=== PATIENT | female | born 1990 | race Caucasian/White ===

== ENCOUNTER 2016-09-18 23:22 | Emergency (ER) | payer BC ==
[2016-09-18 23:38] VITALS: RESP 18
[2016-09-19] MEDS ORDERED: PROPARACAINE 0.5% OPHTH DROPS 15 ML BTL RIGHT EYE SCH (00:15)
--- NOTE | 2016-09-19 00:50 | ED ---
General Adult HPI - General Chief complaint: Eye Problems Stated complaint: Eye Problems Time Seen by Provider: 09/18/16 23:51 Source: patient, RN notes reviewed, old records reviewed Mode of arrival: ambulatory Limitations: no limitations - History of Present Illness Initial comments: This is a 26-year-old female ER for reevaluation of eye pain. Patient is rapidly after getting oral or gas in her eye earlier today. Patient state that it was low-pressure oil injury, noticed it was a splash injury and she did flush her eye at the time. No significant drainage, no redness no change of vision. Patient was not wearing contacts, occasionally does were glasses. Denies any change in vision. No significant pain. Just discomfort - Related Data Home Medications Medication Instructions Recorded Confirmed Phentermine HCl [Adipex-P] 37.5 mg PO QAM 09/18/16 09/18/16 Previous Rx's Medication Instructions Recorded Ondansetron Odt [Zofran ODT] 4 mg PO Q8HR PRN #10 tab 12/12/15 Allergies Allergy/AdvReac Type Severity Reaction Status Date / Time amphetamine aspartate Allergy Unknown Verified 09/18/16 23:37 [From Adderall] amphetamine sulfate Allergy Unknown Verified 09/18/16 23:37 [From Adderall] dextroamphetamine saccharate Allergy Unknown Verified 09/18/16 23:37 [From Adderall] dextroamphetamine sulfate Allergy Unknown Verified 09/18/16 23:37 [From Adderall] Review of Systems ROS Statement: Those systems with pertinent positive or pertinent negative responses have been documented in the HPI. ROS Other: All systems not noted in ROS Statement are negative. Past Medical History Additional Past Medical History / Comment(s): tachycardia; Ovarian Cysts History of Any Multi-Drug Resistant Organisms: None Reported Additional Past Surgical History / Comment(s): ovarian cyst Past Psychological History: No Psychological Hx Reported Smoking Status: Never smoker Past Alcohol Use History: None Reported Past Drug Use History: None Reported General Exam - General Exam Comments Initial Comments: Fluorescein exam right eye is negative, pH test is negative, neutral, eyes flushed with Trent lens Limitations: no limitations General appearance: alert, in no apparent distress Head exam: Present: atraumatic, normocephalic, normal inspection Eye exam: Present: normal appearance, PERRL, EOMI. Absent: scleral icterus, conjunctival injection, periorbital swelling ENT exam: Present: normal exam, mucous membranes moist Neck exam: Present: normal inspection. Absent: tenderness, meningismus, lymphadenopathy Respiratory exam: Present: normal lung sounds bilaterally. Absent: respiratory distress, wheezes, rales, rhonchi, stridor Cardiovascular Exam: Present: regular rate, normal rhythm, normal heart sounds. Absent: systolic murmur, diastolic murmur, rubs, gallop, clicks GI/Abdominal exam: Present: soft, normal bowel sounds. Absent: distended, tenderness, guarding, rebound, rigid Extremities exam: Present: normal inspection, full ROM, normal capillary refill. Absent: tenderness, pedal edema, joint swelling, calf tenderness Back exam: Present: normal inspection Neurological exam: Present: alert, oriented X3, CN II-XII intact Psychiatric exam: Present: normal affect, normal mood Skin exam: Present: warm, dry, intact, normal color. Absent: rash Course Vital Signs 09/18/16 23:35 Temperature 98.0 F Pulse Rate 100 Respiratory 18 Rate Blood Pressure 171/84 O2 Sat by Pulse 98 Oximetry - Reevaluation(s) Reevaluation #1: 09/19/16 00:48 Right eye is inverted in flushed with proparacaine, good sensation relief, good pain relief, eyes flushed with 1 L fluid Trent lens Medical Decision Making - Medical Decision Making 22 for female chemical injury right I, neutral pH no vision changes a patient's symptoms are controlled at this time can be discharged home Disposition Clinical Impression: Chemical exposure of eye Disposition: HOME SELF-CARE Condition: Good Instructions: Chemical Eye Laura (ED) Referrals: Mp Tello MD [STAFF PHYSICIAN] - 1-2 days
[2016-09-19] MEDS ORDERED: TOBRAMYCIN 0.3% OPHTH DROPS 5 ML BTL RIGHT EYE STA (01:05)
[2016-09-19 01:17] VITALS: BP 169/85; PULSE 84; TEMP 97.7
== END 2016-09-19 01:17 | disposition home or self-care (01) ==
LOC: EC 23:22
DX: Z77.098 Contact with and (suspected) exposure to other hazardous, chiefly nonmedicinal, chemicals (principal); H57.11 Ocular pain, right eye; Z79.899 Other long term (current) drug therapy; Z88.8 Allergy status to other drugs, medicaments and biological substances
CPT/HCPCS: 99283

== ENCOUNTER 2019-07-02 16:25 | Emergency (ER) | payer BC, MEDICAID ==
[2019-07-02 16:40] VITALS: BP 144/67; PULSE 93; RESP 18; TEMP 98.4
[2019-07-02] MEDS ORDERED: KETOROLAC 30 MG/ML 1 ML VIAL IM STA (17:00)
--- NOTE | 2019-07-02 17:28 | XR ---
EXAMINATION TYPE: XR ankle complete LT DATE OF EXAM: 07/02/2019 COMPARISON: NONE HISTORY: Pain TECHNIQUE: 3 views FINDINGS: There is soft tissue swelling over the lateral malleolus. I see no fracture nor dislocation . Ankle mortise is anatomic. There is minimal calcification at the distal fibula that could relate to ligamentous tear this could be an old injury. IMPRESSION: Soft tissue swelling. No definite acute fracture seen.
--- NOTE | 2019-07-02 17:46 | ED ---
General Adult HPI - General Chief complaint: Extremity Injury, Lower Stated complaint: Ankle injury Time Seen by Provider: 07/02/19 16:45 Source: patient Mode of arrival: ambulatory Limitations: no limitations - History of Present Illness Initial comments: Patient is a 28-year-old female presenting to the emergency department with a chief complaint of left ankle pain. Patient reports she is stepped into a hole twice about 2 hours prior to ED arrival and rolled her left ankle. Patient reports swelling along the lateral malleolus. Patient denies any pain on the mid foot or along the fifth metatarsal. Patient reports pain with inversion, plantar and dorsiflexion. Patient is a limited range of motion due to pain. Patient denies taking any medication to alleviate the symptoms. Patient reports pain with ambulation but is alleviated at rest. Patient denies numbness or tingling - Related Data Home Medications Medication Instructions Recorded Confirmed Phentermine HCl [Adipex-P] 37.5 mg PO QAM 09/18/16 09/18/16 Previous Rx's Medication Instructions Recorded Ondansetron Odt [Zofran ODT] 4 mg PO Q8HR PRN #10 tab 12/12/15 Allergies Allergy/AdvReac Type Severity Reaction Status Date / Time amphetamine aspartate Allergy Unknown Verified 07/02/19 16:38 [From Adderall] amphetamine sulfate Allergy Unknown Verified 07/02/19 16:38 [From Adderall] dextroamphetamine saccharate Allergy Unknown Verified 07/02/19 16:38 [From Adderall] dextroamphetamine sulfate Allergy Unknown Verified 07/02/19 16:38 [From Adderall] Review of Systems ROS Statement: Those systems with pertinent positive or pertinent negative responses have been documented in the HPI. ROS Other: All systems not noted in ROS Statement are negative. Past Medical History Additional Past Medical History / Comment(s): tachycardia; Ovarian Cysts History of Any Multi-Drug Resistant Organisms: None Reported Additional Past Surgical History / Comment(s): ovarian cyst Past Psychological History: No Psychological Hx Reported Smoking Status: Never smoker Past Alcohol Use History: None Reported Past Drug Use History: None Reported General Exam - General Exam Comments Initial Comments: General: Well-developed well-nourished distress HEENT: Normocephalic/atraumatic, PERLL, pharynx erythema, swallowing well, EAC no erythema, no exudates, TM clear, no cervical lymph nodes Neck: Supple, nontender, trachea midline Chest/Lungs: Normal respirations, no signs of respiratory distress clear to auscultation bilaterally no wheezes, rales, rhonchi Cardiac: Regular rate and rhythm, normal S1-S2, no murmurs rubs or gallops Abdomen/GI: Soft nontender, bowel sounds equal or quadrant x4, no guarding, no rebound no CVA tenderness Musculoskeletal: Tenderness along the left lateral malleolus, no ecchymosis or skin discoloration, swelling along the lateral malleolus, no lacerations or abrasions and region, no midfoot or fifth metatarsal tenderness, limited range of motion due to pain, +2 dorsalis pedis and posterior tibialis bilaterally Skin: Warmth, no rashes or lesions, no cyanosis or diaphoresis Neurologic: AAO x 3, CN 2-12 intact, Psychiatric: Mood and affect normal, judgment normal Limitations: no limitations Course Vital Signs 07/02/19 16:38 Temperature 98.4 F Pulse Rate 93 Respiratory 18 Rate Blood Pressure 144/67 O2 Sat by Pulse 95 Oximetry Procedures - Orthopedic Splinting/Casting Injury #1 Side: left Lower Extremity Injury Location: ankle Lower Extremity Immobilizer: stirrup splint, Augie wrap Medical Decision Making - Medical Decision Making Patient is a 28-year-old female presenting to the emergency department with a chief complaint of left ankle pain. Patient stepped into a hole twice and rolled her left ankle. Patient is neurovascularly intact. Patient does have tenderness and swelling along the left lateral malleolus. X-ray is negative for acute fracture or dislocations. I suspect the patient has suffered an ankle sprain. Augie wrap applied. Patient advised to alternate between Tylenol and ibuprofen for pain control. Patient advised to apply ice compress to minimize symptoms. Patient advised to follow with orthopedics if symptoms not improved. Strict return parameters were thoroughly discussed with patient was understanding and agreeable. Case discussed physician. Disposition Clinical Impression: Left ankle sprain Disposition: HOME SELF-CARE Condition: Stable Instructions (If sedation given, give patient instructions): Ankle Sprain (ED) Additional Instructions: Please follow up with orthopedics if symptoms not improve after week. Alternate between Tylenol and ibuprofen for pain control. Apply ice compress to minimize symptoms. Is patient prescribed a controlled substance at d/c from ED?: No Referrals: None,Stated [Primary Care Provider] - 1-2 days Manav Remy MD [STAFF PHYSICIAN] - 1-2 days Time of Disposition: 17:46
[2019-07-02] MEDS ORDERED: ACET/COD 300 MG/30 MG STARTER PACK 6 TAB BTL PO STA (17:55)
== END 2019-07-02 17:50 | disposition home or self-care (01) ==
LOC: EC 16:25
DX: S93.402A Sprain of unspecified ligament of left ankle, initial encounter (principal); Z88.8 Allergy status to other drugs, medicaments and biological substances; W17.2XXA Fall into hole, initial encounter; X50.1XXA Overexertion from prolonged static or awkward postures, initial encounter
CPT/HCPCS: 73610; 99283; 29515; 96372; J1885

== ENCOUNTER 2020-09-13 10:54 | Emergency (ER) | payer BC, MEDICAID ==
--- NOTE | 2020-09-13 11:19 | ED ---
Back Pain HPI - General Chief Complaint: Back Pain/Injury Stated Complaint: back pain Time Seen by Provider: 09/13/20 11:03 Source: patient, RN notes reviewed Limitations: no limitations - History of Present Illness Initial Comments: This is a 30-year-old female presents emergency Department chief complaint low back pain. Patient states she fell couple days ago that increase her low back pain. She states that she's had issues with her back She Had an Ankle Injury A Few Years Ago. Patient States She Was Favoring Her Opposite Side and States That It Must of Her Back. She's Got a Chiropractor Feet States It Helps but Never Completely Relieves Her Symptoms. Patient States She's Had No Imaging of Her Back. Denies Any Bowel, Bladder Incontinence or Retention. No Saddle Anesthesias No Lower Shunted Paresthesias. She Does Have Some Pain Rates down Her Right Leg into Her Thigh. She Has No Dysuria Mild Urinary Frequency. Denies Any Chance . - Related Data Home Medications Medication Instructions Recorded Confirmed Escitalopram [Lexapro] 20 mg PO HS 09/13/20 09/13/20 Previous Rx's Medication Instructions Recorded Cyclobenzaprine [Flexeril] 10 mg PO TID PRN #15 tab 09/13/20 Ibuprofen [Motrin] 600 mg PO Q8HR PRN #20 tab 09/13/20 predniSONE 50 mg PO DAILY #5 tab 09/13/20 Allergies Allergy/AdvReac Type Severity Reaction Status Date / Time amphetamine aspartate Allergy Unknown Verified 09/13/20 11:37 [From Adderall] amphetamine sulfate Allergy Unknown Verified 09/13/20 11:37 [From Adderall] dextroamphetamine saccharate Allergy Unknown Verified 09/13/20 11:37 [From Adderall] dextroamphetamine sulfate Allergy Unknown Verified 09/13/20 11:37 [From Adderall] Review of Systems ROS Statement: Those systems with pertinent positive or pertinent negative responses have been documented in the HPI. ROS Other: All systems not noted in ROS Statement are negative. Past Medical History Additional Past Medical History / Comment(s): tachycardia; Ovarian Cysts History of Any Multi-Drug Resistant Organisms: None Reported Additional Past Surgical History / Comment(s): ovarian cyst Past Psychological History: No Psychological Hx Reported Smoking Status: Never smoker Past Alcohol Use History: None Reported Past Drug Use History: None Reported General Exam Limitations: no limitations General appearance: alert, in no apparent distress Head exam: Present: atraumatic, normocephalic, normal inspection Eye exam: Present: normal appearance, PERRL, EOMI. Absent: scleral icterus, conjunctival injection, periorbital swelling ENT exam: Present: normal exam, normal oropharynx, mucous membranes moist Neck exam: Present: normal inspection, full ROM. Absent: tenderness, meningismus, lymphadenopathy Respiratory exam: Present: normal lung sounds bilaterally. Absent: respiratory distress, wheezes, rales, rhonchi, stridor Cardiovascular Exam: Present: regular rate, normal rhythm, normal heart sounds. Absent: systolic murmur, diastolic murmur, rubs, gallop, clicks Back exam: Present: full ROM, tenderness, paraspinal tenderness, vertebral tenderness Neurological exam: Present: alert, oriented X3, reflexes normal. Absent: motor sensory deficit Skin exam: Present: warm, dry, intact, normal color. Absent: rash Course Vital Signs 09/13/20 09/13/20 10:58 12:00 Temperature 99.0 F Pulse Rate 92 Respiratory 16 18 Rate Blood Pressure 155/87 O2 Sat by Pulse 98 Oximetry Medical Decision Making - Medical Decision Making X-ray reviewed no acute osseous lesion melena or loss of disc height. Patient has no red flag symptoms. Patient's nausea and intact patient has ongoing low back issues with acute Symptoms. Patient will follow-up with orthopedics and return parameters discussed. - Lab Data Lab Results 09/13/20 09/13/20 Range/Units 11:40 11:40 Urine Color Light Yellow Urine Appearance Clear (Clear) Urine pH 7.0 (5.0-8.0) Ur Specific Magnet 1.015 (1.001-1.035) Urine Protein Negative (Negative) Urine Glucose (UA) Negative (Negative) Urine Ketones Negative (Negative) Urine Blood Trace H (Negative) Urine Nitrite Negative (Negative) Urine Bilirubin Negative (Negative) Urine Urobilinogen <2.0 (<2.0) mg/dL Ur Leukocyte Esterase Negative (Negative) Urine RBC 2 (0-5) /hpf Urine WBC 1 (0-5) /hpf Ur Squamous Epith Cells <1 (0-4) /hpf Urine Bacteria Rare H (None) /hpf Urine Mucus Rare H (None) /hpf Urine HCG, Qual Not Detected (Not Detectd) Disposition Clinical Impression: Lumbar radiculopathy Disposition: HOME SELF-CARE Condition: Stable Instructions (If sedation given, give patient instructions): Acute Low Back Pain (ED) Additional Instructions: Please return to the Emergency Department if symptoms worsen or any other concerns. Prescriptions: Cyclobenzaprine [Flexeril] 10 mg PO TID PRN #15 tab PRN Reason: Muscle Spasm Ibuprofen [Motrin] 600 mg PO Q8HR PRN #20 tab PRN Reason: Pain predniSONE 50 mg PO DAILY #5 tab Is patient prescribed a controlled substance at d/c from ED?: No Referrals: Kacy Davila MD [Primary Care Provider] - 1-2 days Barry Steiner DO [Doctor of Osteopathic Medicine] - 1-2 days Time of Disposition: 12:11
--- NOTE | 2020-09-13 11:45 | XR ---
Lumbosacral spine HISTORY: Low back pain, trauma 5 views of lumbosacral spine correlated prior exam 09/01/2019 There is no evident spondylolysis or anterolisthesis. Lumbar vertebral bodies show stable height, ali gnment, bone mineralization. Disc spaces are stable. Sclerosis of the posterior elements of the lower lumbar spine is consistent with facet arthropathy. No evident spondylolysis. IMPRESSION: No acute fracture or subluxation. Consider bone scan or MRI for increased sensitivity.
[2020-09-13 11:54] LABS: Appearance,Urine Clear (Clear); Bacteria,Urine Rare /hpf; Bilirubin,Urine Negative (Negative); Blood,Urine Trace (Negative); Color,Urine Light Yellow; Glucose,Urine (UA) Negative (Negative); Ketones,Urine Negative (Negative); Leukocyte Esterase,Urine Negative (Negative); Mucus,Urine Rare /hpf; Nitrite,Urine Negative (Negative); Protein,Urine Negative (Negative); RBC,Urine 2 /hpf (0-5); Specific Gravity,Urine 1.015 (1.001-1.035); Squamous Epithelial Cell,Urine <1 /hpf (0-4); Urobilinogen,Urine <2.0 mg/dL (<2.0); WBC,Urine 1 /hpf (0-5)
[2020-09-13 12:08] VITALS: RESP 18
[2020-09-13] MEDS ORDERED: ACET/COD 300 MG/30 MG STARTER PACK 6 TAB BTL PO STA (12:11)
[2020-09-13 12:23] VITALS: BP 147/73; PULSE 76; TEMP 98.5
== END 2020-09-13 12:23 | disposition home or self-care (01) ==
LOC: EC 10:54
DX: M54.16 Radiculopathy, lumbar region (principal); R11.0 Nausea; Z79.899 Other long term (current) drug therapy; Z88.8 Allergy status to other drugs, medicaments and biological substances
CPT/HCPCS: 72110; 81001; 81025; 99283

== ENCOUNTER → 2020-09-27 | Outpatient (CLI) | payer BC ==
--- NOTE | 2020-09-28 06:46 | MR ---
EXAMINATION TYPE: MR lumbar spine wo con DATE OF EXAM: 09/27/2020 COMPARISON: Lumbar spine x-ray September 13, 2020 HISTORY: Low back pain TECHNIQUE: Multiplanar, multisequence imaging of the lumbar spine is performed without IV contrast. FINDINGS: Sagittal images of the lumbar spine show vertebral body heights and alignment to appear sat isfactory. There is disc desiccation L4-L5 and L5-S1 levels. Disc space heights are maintained. The c onus medullaris is normal in position and signal ending superior L1 level. The bone marrow signal in tensity is within normal limits. Axial images show T12-L1, L1-L2, L2-L3, and L3-L4 levels all to appear within normal limits. Axial images at the L4-L5 level show mild broad disc bulge with central disc protrusion effacing ante rior thecal sac on axial image 8, mild right-sided and anterior inferior neural foraminal narrowing. There is patent left-sided neural foramina. Axial images at L5-S1 level shows mild broad-based disc bulging and posterior annular tear, spinal ca nal is preserved. Focal mild to moderate right-sided anterior inferior neural foraminal narrowing sag ittal image 11. Patent left-sided neural foramina. Paraspinal muscle bulk is maintained. IMPRESSION: Some mild degenerative changes in lower lumbar spine as detailed above.
== END | disposition home or self-care (01) ==
LOC: RADMRIMAIN 16:45
PROVIDERS: ATTEND Orthopaedic Surgery
DX: M47.816 Spondylosis without myelopathy or radiculopathy, lumbar region (principal)
CPT/HCPCS: 72148

== ENCOUNTER 2020-11-30 06:02 | Day surgery (SDC) | payer BC ==
[2020-11-29 09:26] VITALS: BMI 34.4
[2020-11-30] MEDS ORDERED: LIDOCAINE 1% (10MG/ML) FOR IV START INTRADERMA ONE (06:25)
[2020-11-30] MEDS ORDERED: LACTATED RINGERS 1,000 ML IV ONE (06:25)
[2020-11-30 06:39] VITALS: TEMP 97.9
[2020-11-30] MEDS ORDERED: MIDAZOLAM 2 MG/2 ML VIAL ONE (06:55)
[2020-11-30] MEDS ORDERED: IOPAMIDOL M200 10 ML VIAL ONE (06:55)
[2020-11-30] MEDS ORDERED: DEXAMETHASONE SOD PHOSPHATE 10 MG/ML 1 ML VIAL ONE (06:55)
[2020-11-30] MEDS ORDERED: IV FLUID CONTINUATION 1,000 ML IV ONE (07:21)
[2020-11-30 07:25] VITALS: RESP 18
[2020-11-30 07:38] VITALS: BP 138/84; PULSE 68
--- NOTE | 2020-11-30 07:45 | P.PCN ---
Date of Procedure: 11/30/20 Preoperative Diagnosis: Lumbar degenerative disc disease, lumbar disc herniation Postoperative Diagnosis: Lumbar degenerative disc disease, and lumbar disc herniation Procedure(s) Performed: Right-sided L4-L5 transforaminal epidural steroid injection under fluoroscopic view Anesthesia: MAC Surgeon: Gosia House Pathology: none sent Condition: stable Description of Procedure: PROCEDURE INDICATION: The patient with continued lumbar pain with radiculopathy, and intervertebral disc disease without myelopathy that has failed to respond to adequate conservative management. Came here for repeat procedure. PROCEDURE DESCRIPTION: The patient was seen and identified in the preoperative area. Risks, benefits, complications, and alternatives were discussed with the patient. The patient agreed to proceed with the procedure and signed the consent. IV was started, and vital signs were stable. Patient was taken to the OR and time out was completed. The patient was placed in the prone position on procedure table and a pillow was placed under the abdomen to reduce lumbar lordosis. The lumbosacral area was prepped with ChloraPrep 1 and draped in the usual sterile fashion. Critical pause was taken. Vital signs were closely monitored during the procedure. Using 20 degree ipsilateral oblique fluoroscopy, the chin of the Flaco dog of L4 was identified, and the skin and deeper tissues just below was localized with 1% lidocaine. 22-guage 5-inch spinal needle was used for the procedure. The needles were guided by fluoroscopy just underneath the chin of the Flaco dog of L4 . Under AP fluoroscopy, the needle was advanced to the 6 o'clock position of the L4 pedicle. After negative aspiration of CSF and blood and with no paresthesias, 1 mL of Isovue-200 contrast dye was injected at each level with good anterior epidural spread and outlining of the L4 root. Each site then underwent injection of 3 mL of block solution. Block solution contained 20 mg of dexamethasone, 2 mL of 1% lidocaine preservative-free with 3 mL of normal saline preservative-free. Needle was removed intact, skin was cleansed, and bandages were applied. COMPLICATIONS: None. Fluoroscopic image: Saved to electronic medical records DISPOSITION : The patient was placed in a supine position and transferred to the recovery area in a stable condition for observation and was discharged from the recovery room after meeting discharge criteria. Home discharge instructions given to the patient by the staff. The patient was reexamined prior to discharge. The patient will schedule follow-up in the clinic in 4 weeks' duration.
[2020-11-30] MEDS ORDERED: LACTATED RINGERS 1,000 ML IV SCH (08:00)
--- NOTE | 2020-11-30 13:04 | FL ---
Fluoroscopy INDICATION: Pain FINDINGS: Fluoroscopy time: 6 seconds. Images obtained: 2. IMPRESSIONS: 1. Documentation of fluoroscopy.
== END 2020-11-30 07:53 | disposition home or self-care (01) ==
LOC: ORPAIN 06:02
DX: M51.16 Intervertebral disc disorders with radiculopathy, lumbar region (principal); N80.9 Endometriosis, unspecified; Z98.890 Other specified postprocedural states; Z88.8 Allergy status to other drugs, medicaments and biological substances
CPT/HCPCS: 81025; 64483; J2250; J1100; Q9966; 99152

== ENCOUNTER → 2020-12-27 | Outpatient (CLI) | payer BC ==
--- NOTE | 2020-12-27 11:10 | P.PN ---
Subjective Progress Note Date: 12/27/20 This is a follow-up visit for this 30 years old female with a chronic history of severe low back pain with radiation to the right lower extremity patient diagnosed with lumbar radiculopathy, lumbar foraminal stenosis and lumbar degenerative disc disease, previously withheld and right-sided transforaminal e pidural steroid injection at L4 5 levels, patient continued to have low back pain with radiation to the right lower extremity and she is feeling severe tenderness over the right hip area, the pain is consistent increased with any activity , and the pain is associated with numbness in the right lower extremity. She is able to ambulate on her and she denies any motor or sensory deficits denies any fever or night sweats, no change in bowel movement or urination Objective - Vital Signs Vital signs: Vital Signs Temp 98.4 F 12/27/20 10:50 Pulse 93 12/27/20 10:50 Resp 16 12/27/20 10:50 BP 141/85 12/27/20 10:50 Pulse Ox 100 12/27/20 10:50 Intake & Output 12/26/20 12/27/20 12/27/20 18:59 06:59 18:59 Weight 99.337 kg - Exam Physical Examinations : -Constitutiona : Cooperative , not in acute distress . -HEENT : nech : supple , no Lymphadenopathy , normal thyroid size . : eyes : no ptosis , no icterus, no photophobia . - neurologic : Cranial nerve II to XII intact , no focal neurological deffecit . -psychatric : alert , oriented X 3 , appropriate affect , intact judgment and insight . -Lymphatic : no Lymphadenopathy . - musculoskeltal : Lumber spine moter stegnth lower extremities ,thigh and legs 5/5 Right side , 5/5 Left side deep tendon reflexes : normal Knee Jerk , normal ankle Jerk lumber facet Loading Test =positive Right , positive Left Range of motion of the lumbar spine Flexion 30 degrees, extension 10 degrees strait leg raising test = negative bilaterally Fabere test= negative bilaterally. Sever tenderness over the Sacroiliac joint on the Right . Gaenslen test= positive right ,. Severe tenderness over the right trochanteric bursa y Assessment and Plan Plan: Assessment and plan=1-lumbar radiculopathy. 2-lumbar degenerative disc disease. 3-lumbar foraminal stenosis. 4-right trochanteric bursitis. She could benefit from repeat right-sided transforaminal epidural steroid injection at L4-L5, and at the same time we can do right-sided Trochanteric bursa steroid injection under fl uoroscopy guidance Time with Patient: Less than 30
== END ==
CPT/HCPCS: 99211

== ENCOUNTER 2021-01-25 07:49 | Day surgery (SDC) | payer BC ==
[2021-01-24 12:13] VITALS: BMI 33.0
[2021-01-25 08:13] VITALS: TEMP 98.7
[2021-01-25] MEDS ORDERED: DEXAMETHASONE SOD PHOSPHATE 10 MG/ML 1 ML VIAL ONE (08:29)
[2021-01-25] MEDS ORDERED: methylPREDNISolone ACETATE 40 MG/ML 1 ML VIAL ONE (08:29)
[2021-01-25] MEDS ORDERED: IOPAMIDOL M200 10 ML VIAL ONE (08:29)
[2021-01-25] MEDS ORDERED: ROPIVACAINE 5MG/ML 20ML VIAL ONE (08:29)
[2021-01-25] MEDS ORDERED: LACTATED RINGERS 1,000 ML IV SCH (09:00)
[2021-01-25 09:01] VITALS: RESP 18
--- NOTE | 2021-01-25 09:07 | FL ---
EXAMINATION TYPE: FL guided pain mgmt statistic DATE OF EXAM: 01/25/2021 HISTORY: Fluoroscopy time 15 seconds of fluoroscopy provided. IMPRESSION: 1. Fluoroscopy time.
[2021-01-25 09:20] VITALS: BP 130/77; PULSE 91
--- NOTE | 2021-01-25 10:53 | P.PCN ---
Date of Procedure: 01/25/21 Description of Procedure: PREOPERATIVE DIAGNOSIS: Lumbar radiculopathy. POSTOPERATIVE DIAGNOSIS: Lumbar radiculopathy. PROCEDURE: 1) right sided L4-L5 Transforaminal epidural steroid injection under fluoroscopic guidance, 2) Epidurogram 3) right-sided greater trochanteric bursa injection under fluoroscopic SURGEON: Gosia House RN DISEASE MANAGEMENT: None ANESTHESIA: Local , and IV sedation: None EBL: None. 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 Came here for repeat procedure. PROCEDURE DESCRIPTION: The patient was seen and identified in the preoperative area. Risks, benefits, complications, and alternatives were discussed with the patient. The patient agreed to proceed with the procedure and signed the consent. IV was started, and vital signs were stable. Patient was taken to the OR and time out was completed. The patient was placed in the prone position on procedure table and a pillow was placed under the abdomen to reduce lumbar lordosis. The lumbosacral area was prepped with ChloraPrep 1 and draped in the usual sterile fashion. Critical pause was taken. Vital signs were closely monitored during the procedure. Using 20 degree ipsilateral oblique fluoroscopy, the chin of the Flaco dog of L4 was identified, and the skin and deeper tissues just below was localized with 1% lidocaine. 22-guage 5-inch spinal needle were used for the procedure. The needle was guided by fluoroscopy just underneath the chin of the Flaco dog of L4 . Under AP fluoroscopy, the needle was advanced to the 6 o'clock position of the L4 pedicle. After negative aspiration of CSF and blood and with no paresthesias, 1 mL of Isovue-200 contrast dye was injected with good anterior epidural spread and outlining of the L4 nerve root. After negative aspiration 3 mL of block solution injected . Block solution contained 10 mg of dexamethasone, 0.5 mL of 1% lidocaine preservative-free with 1.5 mL of normal saline preservative-free. Needle was removed intact, skin was cleansed, and bandage was applied. ---- Pre- and Post-operative Diagnosis: Right-sided Trochanteric Bursitis Procedure: Right Greater Trochanteric Bursa injection under fluoroscopic guidance Surgeon: Dr.Rudram House Anesthesia: Local: 1% Lidocaine, IV sedation : None Complications: none Indications for Procedure: Patient had a history of greater trochanteric bursitis. Tried conservative therapy with minimal response. Came here for intervention procedure. Procedure and Findings: The patient was seen and examined. The written informed consent was obtained after explaining the risks, benefits and alternatives of the procedure to the patient. Patient agreed to proceed for the procedure signed the informed consent. IV started for intraoperative sedation. After the lumbar transforaminal epidural procedure and was placed in supine position on the operating table. The anesthesia was started as mentioned above and monitoring was done with noninvasive blood pressure cuff, EKG and pulse oximetry. The skin preparation was done with ChloraPrep 1, and draping was done in usual sterile fashion. Sterile technique was observed throughout the procedure. Using fluoroscope in the AP view, the greater trochanter was identified. The middle of the greater trochanter was targeted for needle placement. 3 ml of 1% Lidocaine was injected with a 25 gauge needle to achieve adequate local anesthesia of the skin and subcutaneous tissue. A 22 gauge 3.5 inch needle was introduced and advanced into the target area under direct fluoroscopic guidance. A bony contact was felt and the needle was withdrawn for about two millimeters. A negative aspiration was confirmed. A total of 5ml solution containing Kenalog 40 mg and 4 ml of 0.5% preservative-free ropivacaine was injected slowly. The needle was removed intact, area was cleaned and bandage was applied. The patient tolerated the procedure very well. Additional comments: None DISPOSITION : The patient was placed in a supine position and transferred to the recovery area in a stable condition for observation and was discharged from the recovery room after meeting discharge criteria. Home discharge instructions given to the patient by the staff. The patient was reexamined prior to discharge. The patient will schedule follow-up in the clinic in 4 weeks' duration.
== END 2021-01-25 09:30 | disposition home or self-care (01) ==
LOC: ORPAIN 07:49
DX: M54.16 Radiculopathy, lumbar region (principal); M70.61 Trochanteric bursitis, right hip; F32.9 Major depressive disorder, single episode, unspecified; Z88.2 Allergy status to sulfonamides; Z88.8 Allergy status to other drugs, medicaments and biological substances; Z91.018 Allergy to other foods
CPT/HCPCS: 81025; 64483; 20610; J1030; J1100; Q9966; J2795; 99152

== ENCOUNTER 2021-03-14 12:53 | Inpatient (IN) | payer BC ==
[2021-03-14] MEDS ORDERED: MORPHINE SULFATE 4 MG/ML SYRINGE IM STA (14:54)
[2021-03-14] MEDS ORDERED: LIDOCAINE 5% PATCH TOPICAL STA (14:54)
[2021-03-14] MEDS ORDERED: ONDANSETRON 4 MG/2 ML VIAL IM STA (14:54)
[2021-03-14] MEDS ORDERED: KETOROLAC 15 MG/ML 1 ML VIAL IM STA (14:54)
[2021-03-14 14:58] LABS: Appearance,Urine Cloudy (Clear); Bacteria,Urine Occasional /hpf; Bilirubin,Urine Negative (Negative); Blood,Urine Negative (Negative); Color,Urine Yellow; Glucose,Urine (UA) Negative (Negative); Ketones,Urine Negative (Negative); Leukocyte Esterase,Urine Negative (Negative); Mucus,Urine Rare /hpf; Nitrite,Urine Negative (Negative); PH, Urine 5.5 (5.0-8.0); Protein,Urine Negative (Negative); RBC,Urine 2 /hpf (0-5); Specific Gravity,Urine 1.014 (1.001-1.035); Squamous Epithelial Cell,Urine 3 /hpf (0-4); Urobilinogen,Urine <2.0 mg/dL (<2.0); WBC,Urine 2 /hpf (0-5)
--- NOTE | 2021-03-14 14:58 | ED ---
Back Pain HPI - General Chief Complaint: Back Pain/Injury Stated Complaint: back pain Time Seen by Provider: 03/14/21 14:12 Source: patient Limitations: no limitations - History of Present Illness Initial Comments: 30-year-old female presents to the emergency department with a chief complaint of back pain. Patient reports over the last few months she has been experiencing back pain with radiation to the right lower extremity. Patient reports all this occurred after she suffered an ankle injury and has been having an imbalance gait. States she is seen a chiropractor with minimal improvement of symptoms. States she was seen here recently and went to follow-up with diversity specialist to obtain an MRI and the patient has a disc herniation. States she has been undergoing injections twice with no significant improvement in symptoms. States she has been taken ibuprofen and Flexeril and is not helping her symptoms. States the pain is worse with any weightbearing twisting, flexion or extension. She denies any saddle anesthesia, urinary retention with overflow or bowel incontinence. - Related Data Home Medications Medication Instructions Recorded Confirmed Escitalopram [Lexapro] 20 mg PO DAILY 09/13/20 02/21/21 Phentermine HCl [Adipex-P] 37.5 mg PO DAILY 12/27/20 02/21/21 Nf-Felisha Control 1 tab PO DAILY 01/24/21 02/21/21 Previous Rx's Medication Instructions Recorded Cyclobenzaprine [Flexeril] 10 mg PO TID PRN #15 tab 09/13/20 Ibuprofen [Motrin] 600 mg PO Q8HR PRN #20 tab 09/13/20 HYDROcodone/APAP 5-325MG [Pelzer 1 tab PO Q6HR PRN 3 Days #12 tab 03/14/21 5-325] Allergies Allergy/AdvReac Type Severity Reaction Status Date / Time amphetamine aspartate AdvReac SOB Verified 03/14/21 13:16 [From Adderall] amphetamine sulfate AdvReac SOB Verified 03/14/21 13:16 [From Adderall] dextroamphetamine saccharate AdvReac SOB Verified 03/14/21 13:16 [From Adderall] dextroamphetamine sulfate AdvReac SOB Verified 03/14/21 13:16 [From Adderall] Review of Systems ROS Statement: Those systems with pertinent positive or pertinent negative responses have been documented in the HPI. ROS Other: All systems not noted in ROS Statement are negative. Past Medical History Additional Past Medical History / Comment(s): tachycardia "from anxiety". Ovarian Cysts. rt hip pain and rt lower back pain, 2 bulging disks. endometriosis, Infection behind left ear and received antibiotic 2 weeks ago- healed & no drainage now (possible spider bite). kyleena iud implant History of Any Multi-Drug Resistant Organisms: None Reported Additional Past Surgical History / Comment(s): surgery for ovarian cyst/endometriosis. pain clinic procedures; steroid injections Past Anesthesia/Blood Transfusion Reactions: No Reported Reaction Past Psychological History: Anxiety Smoking Status: Never smoker Past Alcohol Use History: None Reported Past Drug Use History: None Reported - Past Family History Mother Family Medical History: No Reported History General Exam Limitations: no limitations General appearance: alert, in no apparent distress Head exam: Present: atraumatic, normocephalic, normal inspection Eye exam: Present: normal appearance, PERRL, EOMI Pupils: Present: normal accommodation ENT exam: Present: normal exam, normal oropharynx, mucous membranes moist Neck exam: Present: normal inspection, full ROM. Absent: tenderness, lymphadenopathy Respiratory exam: Present: normal lung sounds bilaterally. Absent: respiratory distress, wheezes, rales Cardiovascular Exam: Present: regular rate, normal rhythm, normal heart sounds. Absent: systolic murmur, diastolic murmur Extremities exam: Present: normal inspection, full ROM, normal capillary refill. Absent: tenderness, pedal edema, joint swelling Back exam: Present: normal inspection, full ROM, muscle spasm, vertebral tenderness (Lower lumbar tenderness.). Absent: tenderness, CVA tenderness (R), CVA tenderness (L) Neurological exam: Present: alert, oriented X3 Psychiatric exam: Present: normal affect, normal mood Skin exam: Present: warm, dry, intact, normal color Course Vital Signs 03/14/21 03/14/21 03/14/21 13:17 14:18 16:00 Temperature 98.4 F Pulse Rate 94 Respiratory 18 18 18 Rate Blood Pressure 130/71 O2 Sat by Pulse 99 Oximetry 03/14/21 03/14/21 17:00 18:00 Temperature Pulse Rate 86 Respiratory 18 18 Rate Blood Pressure 126/82 O2 Sat by Pulse 97 Oximetry Medical Decision Making - Medical Decision Making 30-year-old female presents to the emergency department with a chief complaint of back pain. On physical examination, lower lumbar tenderness with a positive leg raise test and a right lower extremity. No concerns for cauda equina at this time. Patient was given Toradol, Lidoderm patch, morphine and Dilaudid with no significant improvement symptoms. Patient will be admitted for further medical management. I spoke to Dr. Fischer who will admit patient. Dr. Steiner and will be on consult. Case discussed with Dr. Feliz. - Lab Data Lab Results 03/14/21 03/14/21 Range/Units 14:48 14:48 Urine Color Yellow Urine Appearance Cloudy H (Clear) Urine pH 5.5 (5.0-8.0) Ur Specific [place] 1.014 (1.001-1.035) Urine Protein Negative (Negative) Urine Glucose (UA) Negative (Negative) Urine Ketones Negative (Negative) Urine Blood Negative (Negative) Urine Nitrite Negative (Negative) Urine Bilirubin Negative (Negative) Urine Urobilinogen <2.0 (<2.0) mg/dL Ur Leukocyte Esterase Negative (Negative) Urine RBC 2 (0-5) /hpf Urine WBC 2 (0-5) /hpf Ur Squamous Epith Cells 3 (0-4) /hpf Urine Bacteria Occasional H (None) /hpf Urine Mucus Rare H (None) /hpf Urine HCG, Qual Not Detected (Not Detectd) Disposition Clinical Impression: Mechanical back pain Disposition: ADMITTED IP TO THIS [facility] Condition: Stable Instructions (If sedation given, give patient instructions): Acute Low Back Pain (ED) Prescriptions: HYDROcodone/APAP 5-325MG [Pelzer 5-325] 1 tab PO Q6HR PRN 3 Days #12 tab PRN Reason: Pain Is patient prescribed a controlled substance at d/c from ED?: No Referrals: Kacy Davila MD [Primary Care Provider] - 1-2 days Time of Disposition: 17:00
[2021-03-14] MEDS ORDERED: HYDROmorphone 1 MG/ML 1 ML SYRINGE IM STA (15:48)
[2021-03-14] MEDS ORDERED: ONDANSETRON ODT 4 MG TAB PO STA (17:50)
[2021-03-14] MEDS ORDERED: KETOROLAC 15 MG/ML 1 ML VIAL IVP PRN (18:36)
[2021-03-14] MEDS ORDERED: ACETAMINOPHEN TAB 325 MG TAB PO PRN (18:36)
[2021-03-14] MEDS ORDERED: NALOXONE 0.4 MG/ML 1 ML VIAL IV PRN (18:36)
[2021-03-14] MEDS ORDERED: IBUPROFEN 400 MG TAB PO PRN (18:36)
[2021-03-14] MEDS ORDERED: LORazepam 2 MG/ML INJ IV PRN (18:36)
[2021-03-14] MEDS: HYDROmorphone 0.5 MG/0.5 ML SYRINGE IVP PRN (18:52)
[2021-03-14] MEDS ORDERED: CYCLOBENZAPRINE 10 MG TAB PO PRN (19:58)
[2021-03-14] MEDS ORDERED: TEMAZEPAM 15 MG CAP PO PRN (20:02)
[2021-03-14 20:28] LABS: Basophils # (A) 0.1 k/uL (0-0.2); Basophils % (A) 1 %; Eosinophils # (A) 0.2 k/uL (0-0.7); Eosinophils % (A) 2 %; HCT 37.9 % (34.0-46.0); HGB 13.1 gm/dL (11.4-16.0); Lymphocytes # (A) 2.6 k/uL (1.0-4.8); Lymphocytes % (A) 28 %; MCH 31.1 pg (25.0-35.0); MCHC 34.6 g/dL (31.0-37.0); MCV 89.8 fL (80.0-100.0); Mean Platelet Volume 6.3; Monocytes # (A) 0.4 k/uL (0-1.0); Monocytes % (A) 4 %; Neutrophils % (A) 64 %; Platelet Count 290 k/uL (150-450); RBC 4.22 m/uL (3.80-5.40); RDW 12.9 % (11.5-15.5); WBC 9.3 k/uL (3.8-10.6)
[2021-03-14 20:39] LABS: ALT 15 U/L (4-34); AST 23 U/L (14-36); African American GFR (CKD) >90 (>60 ml/min/1.73 sqM); Albumin 4.2 g/dL (3.5-5.0); Alkaline Phosphatase 73 U/L (38-126); Anion Gap 9 mmol/L; Blood Urea Nitrogen 9 mg/dL (7-17); Calcium 9.4 mg/dL (8.4-10.2); Carbon Dioxide 25 mmol/L (22-30); Chloride 105 mmol/L (98-107); Glucose 90 mg/dL (74-99); Non-African American GFR(CKD) >90 (>60 ml/min/1.73 sqM); Potassium 3.9 mmol/L (3.5-5.1); Sodium 139 mmol/L (137-145); Total Bilirubin 0.2 mg/dL (0.2-1.3); Total Protein 7.1 g/dL (6.3-8.2)
--- NOTE | 2021-03-14 21:01 | HP ---
HISTORY AND PHYSICAL CHIEF COMPLAINT: Back pain. HISTORY OF PRESENT ILLNESS: This 30-year-old woman with a past medical history of tachycardia, ovarian cyst, back pain, followed by Dr. Kacy Davila in outpatient setting, apparently had an accident slipping into a whole a couple years ago. Subsequently patient has had back pain. Patient was evaluated by Dr. Murdock in the outpatient setting. The patient had L4-5 disk collapse and was treating outpatient but the pain never went away completely and for the last couple days the patient has had is excruciating severe pain. Patient unable to ambulate and the patient unable to do any activities of daily living. Pain was in the low back pain which radiated to both upper part of the legs. Straight leg raising test was positive on patient evaluation. There is no history of fever, rigors, chills at this time. PAST MEDICAL HISTORY: Tachycardia, ovarian cyst, history of back pain as mentioned earlier and bulging discs. MEDICATIONS: Phentermine, control pills, Motrin. Lexapro, Flexeril, [place]. ALLERGIES: Amphetamine and Adderall. SOCIAL HISTORY: No smoking, no alcohol use. FAMILY HISTORY: No history of heart disease or strokes. REVIEW OF SYSTEMS: ENT: No diminished vision. CARDIOVASCULAR: No angina. RESPIRATORY: No cough. GI: As mentioned. : No dysuria. NERVOUS SYSTEM: No numbness or weakness. ALLERGY: No asthma or hayfever. MUSCULOSKELETAL: As mentioned. HEMATOLOGY: No anemia. ENDOCRINE: No history of diabetes or hypothyroidism. CONSTITUTIONAL: Negative. RHEUMATOLOGY: Negative. PSYCHIATRIC: As mentioned. PHYSICAL EXAMINATION: Alert oriented x3. Pulse is 88, blood pressure 126/82, respiration 18, temperature 98.4, pulse ox 97% on room air. HEENT: Conjunctivae normal. NECK: No JVD. CARDIOVASCULAR: S1, S2 muffled. RESPIRATORY: Breath sounds diminished in the bases. No rhonchi. No crackles. ABDOMEN: Soft, obese, nontender. LEGS: No edema. No swelling. Straight leg raising test positive on both sides. METAL FLOW COORDINATOR: No focal deficit. No sensory deficits, no focal deficits. LYMPHATICS: No lymph nodes palpable in the neck, axillae or groin. JOINTS: No active deforming arthropathy. LABS: BUN 23.3 previously. Most recent labs are not available. UA unremarkable. ASSESSMENT: 1. Severe back pain, degenerative joint disease with failure of outpatient treatment, possibly L4-L5 disk prolapse with severe radiculopathy. 2. History of degenerative joint disease. 3. History of anxiety related tachycardia. 4. Ovarian cyst. 5. History of anxiety. 6. FULL CODE. RECOMMENDATIONS: This is a 30-year-old woman who presented with multiple complex medical issues. We will monitor the patient closely, continue the current management and symptomatic treatment. Continue the pain medications. I would recommend ketorolac and monitor renal functions closely. DVT prophylaxis. IV steroids empirically. Monitor blood sugars closely otherwise I would also recommend orthopedic evaluation and repeat MRI also to assess the current status of the vertebral disk. Prognosis guarded because of multiple complex medical issues. MMODL / IJN: [id number] /
[2021-03-14] MEDS: INSULIN ASPART (NovoLOG) 100 UNIT/ML VIAL SQ SCH (22:03)
[2021-03-14 22:05] LABS: Glucose,Whole Blood 95 mg/dL (75-99)
[2021-03-14] MEDS: methylPREDNISolone SOD SUCCI 125 MG/2 ML VIAL IV SCH (22:08)
[2021-03-14] MEDS: HYDROmorphone 1 MG/ML 1 ML SYRINGE IVP PRN (22:10)
[2021-03-14] MEDS: HEPARIN SODIUM,PORCINE/PF 5,000 UNIT/0.5 ML SYRINGE SQ SCH (22:11)
[2021-03-15] MEDS: methylPREDNISolone SOD SUCCI 125 MG/2 ML VIAL IV SCH ×4 (00:58→17:30)
[2021-03-15] MEDS: KETOROLAC 15 MG/ML 1 ML VIAL IVP SCH ×4 (01:04→17:29)
[2021-03-15] MEDS: HYDROmorphone 1 MG/ML 1 ML SYRINGE IVP PRN ×3 (01:05→12:36)
[2021-03-15 05:12] LABS: Basophils % (A) 0 %; Eosinophils % (A) 0 %; HCT 40.7 % (34.0-46.0); HGB 13.4 gm/dL (11.4-16.0); Lymphocytes # (A) 0.5 k/uL (1.0-4.8); Lymphocytes % (A) 6 %; MCH 30.1 pg (25.0-35.0); MCHC 32.8 g/dL (31.0-37.0); MCV 91.5 fL (80.0-100.0); Mean Platelet Volume 6.4; Monocytes # (A) 0.1 k/uL (0-1.0); Monocytes % (A) 1 %; Neutrophils # (A) 7.6 k/uL (1.3-7.7); Neutrophils % (A) 93 %; Platelet Count 329 k/uL (150-450); RBC 4.44 m/uL (3.80-5.40); RDW 12.9 % (11.5-15.5); WBC 8.2 k/uL (3.8-10.6)
[2021-03-15] MEDS: HYDROmorphone 0.5 MG/0.5 ML SYRINGE IVP PRN ×2 (05:14→21:28)
[2021-03-15 05:33] LABS: African American GFR (CKD) >90 (>60 ml/min/1.73 sqM); Anion Gap 9 mmol/L; Blood Urea Nitrogen 13 mg/dL (7-17); Calcium 9.8 mg/dL (8.4-10.2); Carbon Dioxide 27 mmol/L (22-30); Chloride 103 mmol/L (98-107); Glucose 169 mg/dL (74-99); Non-African American GFR(CKD) >90 (>60 ml/min/1.73 sqM); Potassium 4.4 mmol/L (3.5-5.1); Sodium 139 mmol/L (137-145)
[2021-03-15] MEDS: INSULIN ASPART (NovoLOG) 100 UNIT/ML VIAL SQ SCH ×4 (07:57→21:24)
[2021-03-15] MEDS: NON FORMULARY DRUG (Phentermine Hcl [Adipex-P] 37.5 MG Tablet) PO SCH (08:00)
[2021-03-15] MEDS: GABAPENTIN 300 MG CAP PO SCH ×3 (08:04→21:28)
[2021-03-15] MEDS: HEPARIN SODIUM,PORCINE/PF 5,000 UNIT/0.5 ML SYRINGE SQ SCH ×2 (08:04→21:27)
[2021-03-15] MEDS: ESCITALOPRAM 20 MG TAB PO SCH (08:04)
[2021-03-15 11:42] LABS: Glucose,Whole Blood 146 mg/dL (75-99)
--- NOTE | 2021-03-15 13:41 | P.CNOR ---
History of Present Illness - HPI Consult date: 03/15/21 Consult reason: low back pain History of present illness: 22-year-old female known to me from the office presented to the emergency department who complains of increasing back pain and leg pain bilaterally. She states that started a day and a half ago she denies any new trauma to her back states that the pain is in her back controlled on both of her legs used only child on her right leg but notes going down both. She denies any bowel or bladder symptoms. Denies any perineal numbness or tingling. She states is difficult to walk secondary to the pain in her legs. She denies a fevers chills shortness of breath or chest pain at this time. Should ring getting injections from the spine clinic at [place] she states she got to transforaminal L4 5 as well as one hip injection. States that these gave her no relief. Review of Systems 14 points review of systems completed and as stated in HPI, all other systems reviewed are negative. Past Medical History Additional Past Medical History / Comment(s): Chronic R hip/R lower back pain since injury 2 yrs ago/bulging disc/herniated disc, tachycardia with anxiety, endometriosis/ovarian cysts. History of Any Multi-Drug Resistant Organisms: None Reported Additional Past Surgical History / Comment(s): surgery for ovarian cyst/endometriosis. pain clinic procedures; steroid injections Past Anesthesia/Blood Transfusion Reactions: No Reported Reaction Smoking Status: Never smoker - Past Family History Mother Family Medical History: No Reported History Additional Family Medical History / Comment(s): Mother is healthy Father Family Medical History: Hypertension, Osteoarthritis (OA) Medications and Allergies Home Medications Medication Instructions Recorded Confirmed Type Cyclobenzaprine [Flexeril] 10 mg PO TID PRN #15 tab 09/13/20 03/14/21 Rx Escitalopram [Lexapro] 20 mg PO DAILY 09/13/20 03/14/21 History Ibuprofen [Motrin] 600 mg PO Q8HR PRN #20 tab 09/13/20 03/14/21 Rx Phentermine HCl [Adipex-P] 37.5 mg PO DAILY 12/27/20 03/14/21 History Nf-Felisha Control 1 tab PO DAILY 01/24/21 03/14/21 History HYDROcodone/APAP 5-325MG [[place] 1 tab PO Q6HR PRN 3 Days #12 tab 03/14/21 Rx 5-325] Allergies Allergy/AdvReac Type Severity Reaction Status Date / Time amphetamine aspartate AdvReac SOB Verified 03/14/21 19:02 [From Adderall] amphetamine sulfate AdvReac SOB Verified 03/14/21 19:02 [From Adderall] dextroamphetamine saccharate AdvReac SOB Verified 03/14/21 19:02 [From Adderall] dextroamphetamine sulfate AdvReac SOB Verified 03/14/21 19:02 [From Adderall] Physical Examination Osteopathic Statement: *. No significant issues noted on an osteopathic str uctural exam other than those noted in the History and Physical/Consult. PHYSICAL EXAMINATION: Vitals: Stable General: Awake, alert, appropriate for age, in no acute distress. HEENT: No unusual neck masses around region of lateral neck triangle, thyroid, supraclavicular groove. Extremities: Skin warm and dry without no acute lesions, coloration, te mperature, skin intact, no tenderness or erythema. Integument: Hairy patches: Absent Dorsal skin dimples: Absent Cafe au lait spots: Absent Surgical incisions: No low back incisions Palpation: Mild tennis to palpation of the lumbar spine and paralumbar region more pain with movement to get into position. No buttock tenderness no SI tenderness at this time POSTURAL and MUSCULO-SKELETAL EVALUATION: Neck ROM: [Unrestricted in six directions] Lumbar ROM: Restricted secondary to pain Shoulder ROM: Symmetric in abduction, ER/IR Hip ROM: Symmetric in abduction, adduction, ER/IR Knee ROM: Symmetric and intact in Flexion / extension Hands: Normal appearing structure L and R Feet: Normal appearing structure L and R VASCULAR STATUS : Wrist Pulses: [2/4 bilateral radial and ulnar] Pedal Pulses: [2/4 bilateral DP and PT] Color: [Normal] Edema: [None] NEUROLOGIC EXAMINATION: Mental Status: Awake and alert, fully oriented, with normal attention, concentration and memory, and fluent, appropriate speech. Cranial Nerves: I: Olfactory not tested. II: Visual acuity normal, no visual field deficit noted with confrontation. III,IV: Normal pupillary reflexes & intact extraocular movements without nystagmus. V,: Intact symmetrical facial sensation. VII: Intact symmetrical facial motor movement VIII: Hearing intact. IX,X: Intact gag, swallow, & normal voice. XI: Sternocleidomastoid, trapezius function intact. XII: Tongue midline with normal movements. Special Tests: L'hermitte's Sign: Absent Spurling'Sign: Absent Bilateral Cubital percussion test: Absent Bilateral Oren-Tinel sign - Carpal region: Absent Bilateral Straight Leg Raising: Absent Bilateral Motor Exam (0-5/5, N/T) STRENGTH UPPER EXTREMITY Shoulder Abd (Not part of FINN Motor score): RIGHT [5] LEFT [5] Elbow Flexors: RIGHT [5] LEFT [5] Elbow Extensor: RIGHT [5] LEFT [5] Wrrist Dorsiflexors: RIGHT [5] LEFT [5] Finger Abductor: RIGHT [5] LEFT [5] Cash Room Clerk: RIGHT [5] LEFT [5] LOWER EXTREMITY Hip Flexor (Not part of FINN Motor Score): RIGHT [5] LEFT [5] Knee Flexor: RIGHT [5] LEFT [5] Knee Extensor: RIGHT [5] LEFT [5] Ankle Dorsiflexion: RIGHT [5] LEFT [5] Ankle Plantarflexion: RIGHT [5] LEFT [5] EHL: RIGHT [5] LEFT [5] FHL: RIGHT [5] LEFT [5] There are no focal deficits at this time. Patient complains of weakness but secondary to pain and when distracted she is able to move with good strength. While it is not completely normal strength this is due to cooperation and the pain that she feels. REFLEXES Biecp: RIGHT [2] LEFT [2] Tricep: RIGHT [2] LEFT [2] Brachioradialis: RIGHT [2] LEFT [2] Patellar: RIGHT [2] LEFT [2] Achilles: RIGHT [2] LEFT [2] Pathological Reflexes Carter's: RIGHT [Absent] LEFT [Absent] Babinski: RIGHT [Absent] LEFT [Absent] Clonus: RIGHT [None] LEFT [None] Bilateral straight leg raise as well as contralateral straight leg raise is subjectively positive and patient SENSORY Joint Position: [Intact bilaterally] Vibration [Intact bilaterally] Pain and LT sense [Intact C5-T1 and L2-S1] Dermatomal deficit states numbness and tingling over the right side L34 L4 5 region Results Previous MRI from September was reviewed there is an L4 5 disc herniation in this area causes moderate stenosis centrally as well as foraminally. MRI was obtained in the hospital today this demonstrates actually improvement in this disc herniation with resorption and increased space in the L4 5 region. There is L4 5 and L5-S1 disc desiccation which is noted. No overt central or foraminal stenosissevere caudal impaction. - Labs Labs: Abnormal Lab Results - Last 24 Hours (Table) 03/14/21 03/14/21 03/15/21 Range/Units 14:48 20:17 04:21 Lymphocytes # 0.5 L (1.0-4.8) k/uL Creatinine 0.47 L (0.52-1.04) mg/dL Glucose (74-99) mg/dL POC Glucose (mg/dL) (75-99) mg/dL Urine Appearance Cloudy H (Clear) Urine Bacteria Occasional H (None) /hpf Urine Mucus Rare H (None) /hpf 03/15/21 03/15/21 Range/Units 04:21 11:40 Lymphocytes # (1.0-4.8) k/uL Creatinine (0.52-1.04) mg/dL Glucose 169 H (74-99) mg/dL POC Glucose (mg/dL) 146 H (75-99) mg/dL Urine Appearance (Clear) Urine Bacteria (None) /hpf Urine Mucus (None) /hpf H & H 03/14/21 03/15/21 Range/Units 20:17 04:21 Hgb 13.1 13.4 (11.4-16.0) gm/dL Hct 37.9 40.7 (34.0-46.0) % Result Diagrams: 03/15/21 04:21 03/15/21 04:21 Assessment and Plan Assessment: 30-year-old female acute on chronic low back pain history L4 5 HNP with exacerbation Lower extremity radiculopathy Plan: Thank you for this consultation -Appreciate platform consultant and team management. -Activity: Ambulate QID, OOB all meals, up and about, limit lifting bending twisting to less than 5 lbs. Use walker or cane if needed for stability. -Daily PT/OT, increase ambulation strength and balance. -Pain control: [Adequate at this time] patient is currently resting comfortably in bed she states that the Dilaudid is not touching it however she really looks comfortable in bed at this time -Meds: [reviewed] -GI ppx: senna, Miralax -DVT PPX: Teds SCDs and early ambulation, heparin okay -Hygiene: Shower daily -Encourage IS 10x/hr -Consult place for pain management to evaluate the patient and performed ROSA of L4-L5 today we will see how the patient does with this and it does not improve her symptoms she may need further imaging to rule out any proximal compression causing weakness in her lower extremities. -Dispo: [Pending] I did cut discussed the patient's clinical signs and symptoms with her as well as her father who is in the room with her at this time. They were on board with the injection as well as possible further imaging we will see them after the injection she how she does. No acute surgical interventions at this time
--- NOTE | 2021-03-15 13:48 | P.PAINCN ---
History of Present Illness - Reason for Consult Consult date: 03/15/21 - History of Present Illness This is 30 years old female with a 3 of lumbar disc herniation lumbar radiculopathy, lumbar degenerative disc disease previously we have done right- sided transforaminal epidural steroid injection at L4 5 level x2, and had no benefit from it and patient was admitted to [facility], because of the low back pain and currently the pain is in the low back area with radiation to both lower extremity, the pain is constant and patient is not able to ambulate secondary to some weakness in her lower extremity bilaterally, denies any change in bowel movement or urination Past Medical History Additional Past Medical History / Comment(s): Chronic R hip/R lower back pain since injury 2 yrs ago/bulging disc/herniated disc, tachycardia with anxiety, endometriosis/ovarian cysts. History of Any Multi-Drug Resistant Organisms: None Reported Additional Past Surgical History / Comment(s): surgery for ovarian cyst/endometriosis. pain clinic procedures; steroid injections Past Anesthesia/Blood Transfusion Reactions: No Reported Reaction Smoking Status: Never smoker - Past Family History Mother Family Medical History: No Reported History Additional Family Medical History / Comment(s): Mother is healthy Father Family Medical History: Hypertension, Osteoarthritis (OA) Medications and Allergies Home Medications Medication Instructions Recorded Confirmed Type Cyclobenzaprine [Flexeril] 10 mg PO TID PRN #15 tab 09/13/20 03/14/21 Rx Escitalopram [Lexapro] 20 mg PO DAILY 09/13/20 03/14/21 History Ibuprofen [Motrin] 600 mg PO Q8HR PRN #20 tab 09/13/20 03/14/21 Rx Phentermine HCl [Adipex-P] 37.5 mg PO DAILY 12/27/20 03/14/21 History Nf-Felisha Control 1 tab PO DAILY 01/24/21 03/14/21 History HYDROcodone/APAP 5-325MG [[place] 1 tab PO Q6HR PRN 3 Days #12 tab 03/14/21 Rx 5-325] Allergies Allergy/AdvReac Type Severity Reaction Status Date / Time amphetamine aspartate AdvReac SOB Verified 03/15/21 13:41 [From Adderall] amphetamine sulfate AdvReac SOB Verified 03/15/21 13:41 [From Adderall] dextroamphetamine saccharate AdvReac SOB Verified 03/15/21 13:41 [From Adderall] dextroamphetamine sulfate AdvReac SOB Verified 03/15/21 13:41 [From Adderall] Physical Exam Vitals: Vital Signs Temp Pulse Pulse Pulse Resp BP BP 03/15/21 13:40 115 H 16 148/74 03/15/21 13:20 18 03/15/21 08:00 110 H 18 03/15/21 07:00 97.7 F 110 H 18 144/90 03/15/21 05:15 92 18 132/75 03/14/21 21:51 98.7 F 108 H 18 150/92 03/14/21 18:00 86 18 126/82 03/14/21 17:00 18 03/14/21 16:00 18 03/14/21 14:18 18 Pulse Ox 03/15/21 13:40 98 03/15/21 13:20 03/15/21 08:00 03/15/21 07:00 97 03/15/21 05:15 98 03/14/21 21:51 98 03/14/21 18:00 97 03/14/21 17:00 03/14/21 16:00 03/14/21 14:18 Intake and Output 03/14/21 03/15/21 03/15/21 22:59 06:59 14:59 Intake Total 480 Balance 480 Intake: Oral 480 Other: Weight 96.615 kg Physical Examinations : -Constitutiona : Cooperative , not in acute distress . -HEENT : nech : supple , no Lymphadenopathy , normal thyroid size . : eyes : no ptosis , no icterus, no photophobia . - neurologic : Cranial nerve II to XII intact , no focal neurological deffecit . -psychatric : alert , oriented X 3 , appropriate affect , intact judgment and insight . -Lymphatic : no Lymphadenopathy . - musculoskeltal : Lumber spine moter stegnth lower extremities ,thigh and legs 3/5 Right side , 3/5 Left side deep tendon reflexes : normal Knee Jerk , normal ankle Jerk lumber facet Loading Test =positive Right , positive Left Range of motion of the lumbar spine Flexion 30 degrees, extension 10 degrees strait leg raising test = positive at 30 degree Fabere test= positive Right , and positive LT . tenderness over the Sacroiliac joint on the Right , and Left sides Results CBC & Chem 7: 03/15/21 04:21 03/15/21 04:21 Labs: Abnormal Lab Results - Last 24 Hours (Table) 03/14/21 03/14/21 03/15/21 Range/Units 14:48 20:17 04:21 Lymphocytes # 0.5 L (1.0-4.8) k/uL Creatinine 0.47 L (0.52-1.04) mg/dL Glucose (74-99) mg/dL POC Glucose (mg/dL) (75-99) mg/dL Urine Appearance Cloudy H (Clear) Urine Bacteria Occasional H (None) /hpf Urine Mucus Rare H (None) /hpf 03/15/21 03/15/21 Range/Units 04:21 11:40 Lymphocytes # (1.0-4.8) k/uL Creatinine (0.52-1.04) mg/dL Glucose 169 H (74-99) mg/dL POC Glucose (mg/dL) 146 H (75-99) mg/dL Urine Appearance (Clear) Urine Bacteria (None) /hpf Urine Mucus (None) /hpf Comments: MRI of the lumbar spine lumbar herniated disc at L4 5 Assessment and Plan Plan: Assessment and plan=1-lumbar disc herniation at L45. 2-lumbar radiculopathy. Patient could benefit from lumbar epidural steroid injection under fluoroscopy guidance at the L4 5 levels Time with Patient: Less than 30 PQRS Measure Charge Sheet PQRS Narrative: Smoking Status Never smoker Blood Pressure [Right Arm] 148/74 Blood Pressure 132/75 Pain Intensity [Back] 10 Pain Intensity 0 Pain Scale Used [Back] Numeric (1 - 10) Pain Scale Used Numeric (1 - 10) Scale Used Numeric (1 - 10) Hx Alcohol Use (MH) No Home Medications: Ambulatory Orders Cyclobenzaprine [Flexeril] 10 mg PO TID PRN #15 tab 09/13/20 Escitalopram [Lexapro] 20 mg PO DAILY 09/13/20 Ibuprofen [Motrin] 600 mg PO Q8HR PRN #20 tab 09/13/20 Phentermine HCl [Adipex-P] 37.5 mg PO DAILY 12/27/20 Nf-Felisha Control 1 tab PO DAILY 01/24/21 HYDROcodone/APAP 5-325MG [[place] 5-325] 1 tab PO Q6HR PRN 3 Days #12 tab 03/14/21
[2021-03-15] MEDS ORDERED: LACTATED RINGERS 1,000 ML IV ONE (13:52)
[2021-03-15] MEDS ORDERED: MIDAZOLAM 2 MG/2 ML VIAL ONE (14:27)
[2021-03-15] MEDS ORDERED: IOPAMIDOL M200 10 ML VIAL ONE (14:27)
[2021-03-15] MEDS ORDERED: fentaNYL (PF) 50 MCG/ML 2 ML AMP ONE (14:27)
[2021-03-15] MEDS ORDERED: methylPREDNISolone ACETATE 40 MG/ML 1 ML VIAL ONE (14:27)
--- NOTE | 2021-03-15 14:41 | P.PCN ---
Date of Procedure: 03/15/21 Procedure(s) Performed: PREOPERATIVE DIAGNOSIS: 1- Lumbar herniated Disc Diseases 2-Lumbar Radiculopathy. POSTOPERATIVE DIAGNOSIS: Same as preop diagnosis. PROCEDURE 1. Lumbar epidural steroid injection under fluoroscopic guidance at the L4-5 level. (Fluoroscopy imaging was available in radiology department) 2. Lumbar epidurogram. ANESTHESIA: Local with 1% lidocaine 3 ml and , moderate sedation with intravenous Versed 2 mg ,and fentanyle 100 Mcg EBL: Minimal PROCEDURE INDICATION: The patient with low back pain and radiculitis symptoms unresponsive to conservative treatment. Fluoroscopy was used to optimize visualization of the needle placement and to maximize safety. PROCEDURE DESCRIPTION / TECHNIQUE: The patient was seen and identified in the preoperative area. Risks, benefits, complications including but not limited to infections ,bleeding ,allergic reaction to the medications ,nerve damage and not complete pain releife , and alternatives were discussed with the patient. The patient agreed to proceed with the procedure and signed the consent. IV was started, and vital signs were stable. Patient was taken to the OR and time out was completed. The patient was placed in the prone position on procedure table and a pillow was placed under the abdomen to reduce lumbar lordosis. The lumbosacral area was prepped and draped in the usual sterile fashion.ere closely monitored during the procedure. Conscious sedation was used during the procedure to decrease patients anxiety. Vital signs was monitered during the entire procedure. Using anterior-posterior fluoroscopy, the L4-5 interlaminar space was identified and the skin over this site was marked and then infiltrated with 1% lidocaine subcutaneously. Subsequently, a 20-gauge Tuohy epidural needle was inserted and advanced toward the epidural space using the ``Loss of resistance technique and guided by AP and lateral fluoroscopy. The correct needle position in the epidural space was verified with the injection of 2 mL of the water soluble contrast dye Isovue 200 contrast and observing an excellent epidurogram with the epidural spread of the dye, after negative aspiration for blood and CSF and in the absence of paresthesias. Again after negative aspiration, a 6 ml mixture containing 80 mg of Depo-medrol , and 2 ml of preservative free Normal Saline, and 2 ml of preservative free lidocaine 1% solution was injected and a washout of epidurogram was seen. Needle was withdrawn intact, skin was cleansed, and bandages were applied. COMPLICATIONS: None DISPOSITION / PLANS: The patient was placed in a supine position and transferred to the recovery area in a stable condition for observation. There was no evidence of lower extremity motor or sensory deficit after the procedure. Patient was discharged from the recovery room after meeting discharge criteria. Home discharge instructions were given to the patient by the staff. The patient was reexamined prior to discharge. The patient will schedule a follow up in the clinic in 2-4 weeks.
--- NOTE | 2021-03-15 15:04 | P.DS ---
Providers Date of admission: 03/14/21 20:33 Attending physician: Rodrigo Fischer Consults: 03/14/21 18:37 Consult Physician Routine Consulting Provider: Barry Steiner Consult Reason/Comments: Intractable back pain Do you want consulting provider notified?: Yes 03/15/21 12:51 Consult Physician Routine Consulting Provider: August Torres Consult Reason/Comments: Epidural steroid injection Do you want consulting provider notified?: Yes Primary care physician: [facility] Course: 30-year-old female came in with complaints of severe low back pain. Patient had history of L4-L5 herniated disc. Patient was evaluated by neurology. Patient does have a radical op the evening valid the patient patient had a repeat MRI repeat MRI official reading from radiology is pending although spinal surgeon evaluated the patient MRI was reviewed by him apparently there is improvement in herniation of L4-L5 and there is desiccation at L4-L5 and L5-S1. Patient was on the systemic steroids here patient was evaluated by pain management patient received epidural steroid injection to the lower lumbar spine. Patient is able to stand and ambulate well. A brace was ordered by Dr. Orozco surgery was cleared for discharge. Patient was given prescription for [place] from arthritic perspective and patient was started on Neurontin on this hospitalization during her admission prescription of which will be provided to the patient as well. Patient will be discharged today. PHYSICAL EXAMINATION: GENERAL: The patient is alert and oriented x3, not in any acute distress. Well developed, well nourished. HEENT: Pupils are round and equally reacting to light. EOMI. No scleral icterus. No conjunctival pallor. Normocephalic, atraumatic. No pharyngeal erythema. No thyromegaly. CARDIOVASCULAR: S1 and S2 present. No murmurs, rubs, or gallops. PULMONARY: Chest is clear to auscultation, no wheezing or crackles. ABDOMEN: Soft, nontender, nondistended, normoactive bowel sounds. No palpable organomegaly. MUSCULOSKELETAL: No joint swelling or deformity. EXTREMITIES: No cyanosis, clubbing, or pedal edema. NEUROLOGICAL: Gross neurological examination did not reveal any focal deficits. SKIN: No rashes. Lower lumbar disc herniation as mentioned above -Anxiety disorder The rest of the medical problems and has position course please refer to H&P from Dr. Fischer from yesterday Patient Condition at Discharge: Stable Plan - Discharge Summary Discharge Rx Participant: No New Discharge Prescriptions: New HYDROcodone/APAP 5-325MG [[place] 5-325] 1 tab PO Q6HR PRN 3 Days #12 tab PRN Reason: Pain Gabapentin [Neurontin] 300 mg PO TID PRN #20 cap PRN Reason: Pain Continue Escitalopram [Lexapro] 20 mg PO DAILY Cyclobenzaprine [Flexeril] 10 mg PO TID PRN #15 tab PRN Reason: Muscle Spasm Ibuprofen [Motrin] 600 mg PO Q8HR PRN #20 tab PRN Reason: Pain Phentermine HCl [Adipex-P] 37.5 mg PO DAILY Nf-Felisha Control 1 tab PO DAILY Discharge Medication List Cyclobenzaprine [Flexeril] 10 mg PO TID PRN #15 tab 09/13/20 [Rx] Escitalopram [Lexapro] 20 mg PO DAILY 09/13/20 [History] Ibuprofen [Motrin] 600 mg PO Q8HR PRN #20 tab 09/13/20 [Rx] Phentermine HCl [Adipex-P] 37.5 mg PO DAILY 12/27/20 [History] Nf-Felisha Control 1 tab PO DAILY 01/24/21 [History] HYDROcodone/APAP 5-325MG [[place] 5-325] 1 tab PO Q6HR PRN 3 Days #12 tab 03/14/21 [Rx] Gabapentin [Neurontin] 300 mg PO TID PRN #20 cap 03/15/21 [Rx] Follow up Appointment(s)/Referral(s): Kacy Davila MD [Primary Care Provider] - 3 Days Barry Steiner DO [Doctor of Osteopathic Medicine] - 1 Week Patient Instructions/Handouts: Acute Low Back Pain (ED) Discharge/Stand Alone Forms: Anes Pain/[facility] Instructions
[2021-03-15 17:25] LABS: Glucose,Whole Blood 142 mg/dL (75-99)
[2021-03-15 21:22] LABS: Glucose,Whole Blood 135 mg/dL (75-99)
--- NOTE | 2021-03-15 23:37 | MR ---
EXAMINATION TYPE: MR lumbar spine wo/w con DATE OF EXAM: 03/15/2021 COMPARISON: CT scan of the brain and cervical spine. History HISTORY: L4 L5 disc prolapse CONTRAST: Standard multiplanar, multisequence MRI departmental protocol utilizing 9.5 mL intravenous Gadavist g adolinium contrast. Lumbar vertebra have normal alignment. There is narrowing of L4-5 and L5-S1 disc spaces. Lumbar nerve roots appear fairly normal. The neural foramina are fairly well-maintained. There is no compression fracture. There is decreased signal in the L4-5 and L5-S1 discs. There is no lumbar paraspinal mass. There is no compression fracture. There is no spinal stenosis. The visualized sacroiliac joints appea r intact. IMPRESSION: Degenerative ordinary disc changes at L4-5 and L5-S1. No spinal stenosis. No fracture.
[2021-03-16] MEDS: KETOROLAC 15 MG/ML 1 ML VIAL IVP SCH ×4 (00:29→17:18)
[2021-03-16] MEDS: methylPREDNISolone SOD SUCCI 125 MG/2 ML VIAL IV SCH ×4 (00:30→17:17)
[2021-03-16 06:50] LABS: Glucose,Whole Blood 152 mg/dL (75-99)
[2021-03-16] MEDS: INSULIN ASPART (NovoLOG) 100 UNIT/ML VIAL SQ SCH ×4 (07:50→21:08)
[2021-03-16] MEDS: NON FORMULARY DRUG (Phentermine Hcl [Adipex-P] 37.5 MG Tablet) PO SCH (07:50)
[2021-03-16] MEDS: GABAPENTIN 300 MG CAP PO SCH ×3 (07:55→21:08)
[2021-03-16] MEDS: HYDROmorphone 1 MG/ML 1 ML SYRINGE IVP PRN (07:56)
[2021-03-16] MEDS: HEPARIN SODIUM,PORCINE/PF 5,000 UNIT/0.5 ML SYRINGE SQ SCH ×2 (07:56→21:08)
[2021-03-16] MEDS: ESCITALOPRAM 20 MG TAB PO SCH (07:56)
--- NOTE | 2021-03-16 08:15 | FL ---
Fluoroscopy INDICATION: Pain FINDINGS: Fluoroscopy time: 5 seconds. Images obtained: 1. IMPRESSIONS: 1. Documentation of fluoroscopy.
--- NOTE | 2021-03-16 10:16 | P.PN ---
Subjective Progress Note Date: 03/16/21 Pt s/e. She had ROSA yesterday with some relief, but when trying to get up last night and move around states her legs are very weak and painful and she was unable to do so. She states no bowel or bladder issues but exquisit back pain that the meds arnt helping at all. She states no perineal numbnes/tingling. No other new neurological symptoms. Objective - Vital Signs Vital signs: Vital Signs Temp 98.1 F 03/16/21 07:00 Pulse 102 H 03/16/21 07:00 Resp 18 03/16/21 08:00 BP 135/73 03/16/21 07:00 Pulse Ox 95 03/16/21 07:00 Intake & Output 03/15/21 03/16/21 03/16/21 18:59 06:59 18:59 Intake Total 580 Balance 580 Weight 96.615 kg Intake: IV 100 Oral 480 Other: Voiding Method Toilet Toilet # Voids 1 - Exam Patient is alert and oriented 3 appears well-nourished well-hydrated is in no acute distress. They does not appear septic. On exam the patient has no tenderness to palpation of her thoracic or lumbar spine. There is no edema or ballottement sign. Lower extremities with 5 out of 5 strength in all major muscle groups, however she has a weakness in the right lower extremity dorsiflexion plantar flexion. She has more weakness with hip flexion on the right and does not want to do this due to pain. She is tensioning signs when this is straight leg raise. Upper extremities show 5/5 strength in all major muscle groups. There is FROM that is painless of the b/l UE and LE in all major joints. They are intact to light touch sensation in L2 to S1 nerve distribution. 2/4 DTR all Patient has palpable dorsalis pedis was posterior tibial pulses. Compartments are soft and compressible. Patient shows a negative Homans, Carter's, negative Babinski's negative clonus bilaterally. negative straight leg raise bilaterally. Tensioning signs of contralateral straight leg raise. Cranial nerves II through XII are grossly intact. Overall alignment is well-maintained in the sagittal coronal planes. No SI joint tenderness bilaterally - Labs CBC & Chem 7: 03/15/21 04:21 03/15/21 04:21 Labs: Abnormal Lab Results - Last 24 Hours (Table) 03/15/21 03/15/21 03/15/21 Range/Units 11:40 17:24 21:20 POC Glucose (mg/dL) 146 H 142 H 135 H (75-99) mg/dL 03/16/21 Range/Units 06:49 POC Glucose (mg/dL) 152 H (75-99) mg/dL Assessment and Plan Assessment: 30-year-old female acute on chronic low back pain history L4 5 HNP with exacerbation Lower extremity radiculopathy Plan: -Appreciate ergonomics consultant and team management. -Activity: Ambulate QID, OOB all meals, up and about, limit lifting bending twisting to less than 5 lbs. Use walker or cane if needed for stability. -Daily PT/OT, increase ambulation strength and balance. -Pain control: recommend stopping dilaudid as this only "marginally" helps her in favor of antiinflammatories as well as longer acting meds. -Meds: [reviewed] -GI ppx: senna, Miralax -DVT PPX: Teds SCDs and early ambulation, heparin okay -Hygiene: Shower daily -Encourage IS 10x/hr -ROSA completed, minimal relief. MRI of th C and T spine ordered. MRI L spine again shows improvement from September MR of L spine with L4-5 HNP interval res orption and decreased stenosis. -Dispo: [Pending] I discussed with the patient her clinical signs and symptoms. As well as her MRI with her and her father. Her MRI shows improvement in the L4 5 region which does not explain her symptoms. The disc herniation that was previously present there has resorbed itself quite a bit. She has less stenosis in this area. I cannot explain her proximal weakness in her legs and the only way to rule this out would be to get an MRI of her cervical and thoracic spine and make sure she does not have a compressive lesions or else. I otherwise do not a good explanation as to why she has some much pain in her lower extremities other than if she has peripheral nerve issues. We will increase her gabapentin I do think we should stop her IV Dilaudid and give her more long-acting pain medications. I discussed with the patient at this time. She says she does not want surgery.
[2021-03-16 11:49] LABS: Glucose,Whole Blood 137 mg/dL (75-99)
--- NOTE | 2021-03-16 15:10 | MR ---
EXAMINATION TYPE: MR krystyna/pb wo con DATE OF EXAM: 03/16/2021 COMPARISON: None HISTORY: Neck and back pain, lower extremity weakness CONTRAST: None TECHNIQUE: Multiplanar multiecho imaging on a 3.0 Mónica magnet is performed through the cervical spin e. FINDINGS: The craniovertebral junction is normal. Vertebral body alignment is normal. C7-T1: No focal disc herniation or significant disc bulge is evident. No spinal canal stenosis or n eural foraminal stenosis is present. C6-7: No focal disc herniation or significant disc bulge is evident. No spinal canal stenosis or alfredo ral foraminal stenosis is present. C5-6: Broad-based disc bulge is present with moderate anterior thecal sac compression. No cord contac t or cord deformity is evident. Uncovertebral joint hypertrophy is mild foraminal narrowing.. C4-5: No focal disc herniation or significant disc bulge is evident. No spinal canal stenosis present . There is some mild foraminal narrowing from uncovertebral joint hypertrophy C3-4: No focal disc herniation or significant disc bulge is evident. No spinal canal stenosis or alfredo ral foraminal stenosis is present. C2-3: No focal disc herniation or significant disc bulge is evident. No spinal canal stenosis or alfredo ral foraminal stenosis is present. IMPRESSIONS: 1. Mild disc bulging present at C5-6 with moderate anterior thecal sac flattening. No stenosis is pre sent. 2. Foraminal narrowing C4-5 C5-6 secondary to mild uncovertebral joint hypertrophy. EXAMINATION TYPE: MR krystyna/pb wo con DATE OF EXAM: 03/16/2021 COMPARISON: None HISTORY: Neck and back pain lower extremity weakness CONTRAST: None TECHNIQUE: Multiplanar, multiecho imaging on a 3.0 Mónica magnet is performed through the thoracic spi ne. Spinal cord maintains normal signal through its visualized course. Vertebral body alignment is normal. Vertebral body heights are preserved. Disc heights are preserved. Disc hydration levels are preserved. T2-T3: Broad-based left paracentral disc bulge and protrusion is present with mild to moderate anteri or thecal sac compression. Cord contact is not identified. Some mild left cord flattening may be pres ent. T5-6: There is some broadbase disc bulge with anterior thecal sac contact. Cord contact may be presen t. No AP spinal canal stenosis present. Neural foramen are patent. T7-T8: There is a small left paracentral disc extrusion with mild anterior thecal sac compression. Th is has some cord contact without cord deformity. No spinal canal stenosis is present. T10-T11: There is some facet hypertrophy with mild left posterior lateral thecal sac compression. No cord contact or spinal canal stenosis is present. No spinal canal stenosis is evident. IMPRESSIONS: 1. Disc bulges at T2-3, T5-6, T7-8 [id number] thecal sac impression. 2. There may be some cord contact at T5-6 without cord deformity. 3. T2-T3 cord flattening on the left may be present although cord contact is not clearly identified.
[2021-03-16] MEDS: HYDROcodone/APAP 5-325MG 1 EACH TAB PO PRN ×2 (15:20→21:24)
[2021-03-16] MEDS: IBUPROFEN 800 MG TAB PO SCH ×2 (15:20→21:09)
--- NOTE | 2021-03-16 16:40 | P.PN ---
Subjective 30-year-old female came in with complaints of severe low back pain. Patient had history of L4-L5 herniated disc. Patient was evaluated by neurology. Patient does have a radical op the evening valid the patient patient had a repeat MRI repeat MRI official reading from radiology is pending although spinal surgeon evaluated the patient MRI was reviewed by him apparently there is improvement in herniation of L4-L5 and there is desiccation at L4-L5 and L5-S1. Patient was on the systemic steroids here patient was evaluated by pain management patient received epidural steroid injection to the lower lumbar spine. Patient is able to stand and ambulate well. A brace was ordered by Dr. Orozco surgery was cleared for discharge. Patient was given prescription for [place] from arthritic perspective and patient was started on Neurontin on this hospitalization during her admission prescription of which will be provided to the patient as well. Patient will be discharged today. 03/16/2021 As patient had continued pain in the back, spinal surgeon recommended an MRI of the thoracic spine which was obtained which showed disc prolapse at multiple le vels and thoracic spine with moderate thecal compression. Further management as per spinal surgery. Patient is still complaining of severe pain. MRI of the lumbar spine did not show any significant abnormality. PHYSICAL EXAMINATION: GENERAL: The patient is alert and oriented x3, not in any acute distress. Well developed, well nourished. HEENT: Pupils are round and equally reacting to light. EOMI. No scleral icterus. No conjunctival pallor. Normocephalic, atraumatic. No pharyngeal erythema. No thyromegaly. CARDIOVASCULAR: S1 and S2 present. No murmurs, rubs, or gallops. PULMONARY: Chest is clear to auscultation, no wheezing or crackles. ABDOMEN: Soft, nontender, nondistended, normoactive bowel sounds. No palpable organomegaly. MUSCULOSKELETAL: No joint swelling or deformity. EXTREMITIES: No cyanosis, clubbing, or pedal edema. NEUROLOGICAL: Gross neurological examination did not reveal any focal deficits. SKIN: No rashes. Lower lumbar disc herniation as mentioned above -Thoracic spine disc herniation with some thecal compression -Anxiety disorder T Objective - Vital Signs Vital signs: Vital Signs Temp 98.1 F 03/16/21 15:00 Pulse 108 H 03/16/21 15:00 Resp 18 03/16/21 15:00 BP 158/74 03/16/21 15:00 Pulse Ox 93 L 03/16/21 15:00 Intake & Output 03/15/21 03/16/21 03/16/21 18:59 06:59 18:59 Intake Total 580 240 Balance 580 240 Weight 96.615 kg Intake: IV 100 Oral 480 240 Other: Voiding Method Toilet Toilet # Voids 1 - Labs CBC & Chem 7: 03/15/21 04:21 03/15/21 04:21 Labs: Abnormal Lab Results - Last 24 Hours (Table) 03/15/21 03/15/21 03/16/21 Range/Units 17:24 21:20 06:49 POC Glucose (mg/dL) 142 H 135 H 152 H (75-99) mg/dL 03/16/21 Range/Units 11:47 POC Glucose (mg/dL) 137 H (75-99) mg/dL
[2021-03-16 17:12] LABS: Glucose,Whole Blood 153 mg/dL (75-99)
[2021-03-16 21:01] LABS: Glucose,Whole Blood 154 mg/dL (75-99)
[2021-03-17] MEDS: KETOROLAC 15 MG/ML 1 ML VIAL IVP SCH ×4 (00:17→17:32)
[2021-03-17] MEDS: methylPREDNISolone SOD SUCCI 125 MG/2 ML VIAL IV SCH ×4 (00:18→17:31)
[2021-03-17 07:25] LABS: Glucose,Whole Blood 121 mg/dL (75-99)
[2021-03-17] MEDS: INSULIN ASPART (NovoLOG) 100 UNIT/ML VIAL SQ SCH ×4 (08:18→21:56)
[2021-03-17] MEDS: HEPARIN SODIUM,PORCINE/PF 5,000 UNIT/0.5 ML SYRINGE SQ SCH ×2 (08:19→21:56)
[2021-03-17] MEDS: ESCITALOPRAM 20 MG TAB PO SCH (08:19)
[2021-03-17] MEDS: GABAPENTIN 300 MG CAP PO SCH ×3 (08:20→21:57)
[2021-03-17] MEDS: IBUPROFEN 800 MG TAB PO SCH ×3 (08:20→22:16)
[2021-03-17] MEDS: NON FORMULARY DRUG (Phentermine Hcl [Adipex-P] 37.5 MG Tablet) PO SCH (08:21)
[2021-03-17] MEDS: HYDROcodone/APAP 5-325MG 1 EACH TAB PO PRN (08:25)
[2021-03-17] MEDS ORDERED: methylPREDNISolone ACETATE 40 MG/ML 1 ML VIAL INTRAARTIC STA (10:27)
[2021-03-17] MEDS ORDERED: LIDOCAINE (PF) 10 MG/ML 2 ML VIAL IM ONE (10:30)
[2021-03-17 11:51] LABS: Glucose,Whole Blood 134 mg/dL (75-99)
[2021-03-17] MEDS ORDERED: LIDOCAINE 1% INJ 10MG/ML (20 ML MDV) SQ STA (12:47)
--- NOTE | 2021-03-17 13:27 | P.PN ---
Subjective Progress Note Date: 03/17/21 Principal diagnosis: Neuritis, lumbar pain with radicular symptoms Patient is examined today bedside, Dr. Steiner was also available to examine patient. Patient has noted no significant improvement with the epidural steroid injection done a few days ago. We did adjust her oral medications yesterday, this seems to be helping minimally. She continues to have neurologic pain of the bilateral lower extremities, does not consistently affecting one leg over the other at this time, it seems to be changing daily. She continues to have no bowel or bladder dysfunction, she denies any perineal or genital numbness. Objective - Vital Signs Vital signs: Vital Signs Temp 98.0 F 03/17/21 07:00 Pulse 88 03/17/21 07:00 Resp 18 03/17/21 07:00 BP 138/77 03/17/21 07:00 Pulse Ox 97 03/17/21 07:00 Intake & Output 03/16/21 03/17/21 03/17/21 18:59 06:59 18:59 Intake Total 240 237 Balance 240 237 Intake: Oral 240 237 Other: Voiding Method Toilet Toilet Toilet # Voids 2 - Exam Patient is alert and oriented 3 appears well-nourished well-hydrated is in no acute distress. They does not appear septic. On exam the patient has no tenderness to palpation of her thoracic or lumbar spine. There is no edema or b allottement sign. Lower extremities with 5 out of 5 strength in all major muscle groups, however she has a weakness in the right lower extremity dorsiflexion plantar flexion. She has more weakness with hip flexion on the right and does not want to do this due to pain. She is tensioning signs when this is straight leg raise. Upper extremities show 5/5 strength in all major muscle groups. There is FROM that is painless of the b/l UE and LE in all major joints. They are intact to light touch sensation in L2 to S1 nerve distribution. 2/4 DTR all Patient has palpable dorsalis pedis was posterior tibial pulses. Compartments are soft and compressible. Patient is very tender over the trochanteric bursa on the right side of the hip. Patient shows a negative Homans, Carter's, negative Babinski's negative clonus bilaterally. negative straight leg raise bilaterally. Tensioning signs of contralateral straight leg raise. Cranial nerves II through XII are grossly intact. Overall alignment is well-maintained in the sagittal coronal planes. No SI joint tenderness bilaterally - Labs CBC & Chem 7: 03/15/21 04:21 03/15/21 04:21 Labs: Abnormal Lab Results - Last 24 Hours (Table) 03/16/21 03/16/21 03/17/21 Range/Units 17:10 20:59 07:23 POC Glucose (mg/dL) 153 H 154 H 121 H (75-99) mg/dL 03/17/21 Range/Units 11:50 POC Glucose (mg/dL) 134 H (75-99) mg/dL Assessment and Plan Assessment: 30-year-old female acute on chronic low back pain history L4 5 HNP with exacerbation Lower extremity radiculopathy Plan: Dr. Steiner was available today to discuss continuation of treatment and the imaging study results. The cervical and thoracic MRI did not demonstrate any severe levels of stenosis or other spinal abnormalities that are consistent with the patient's symptoms. Patient continues to have altering symptoms of the right lower extremities, she also states that she's had some headaches over the last few days. We will reconsult in neurology at this time for help with diagnosis and treatment. With the patient's symptoms she demonstrated over the trochanteric bursa on the right side of the hip, we did discuss possibility of a steroid injection at bedside. We discussed the risk and benefits of the procedure, the patient is a new grandson would like to proceed. Please see procedure note for further detail Patient does admit she did receive the COVID-19 vaccine about 6 weeks ago, we did discuss the possibility of an adverse reaction that could be causing the pain along with weakness in the lower extremities. Recommending continuation of the medication she is taking, this including the muscle relaxer and gabapentin. Other medical specialty recommendations No orthopedic spine surgery recommended at this time Continue work with physical therapy, patient needs to be up and ambulating as much as possible GI and DVT prophylaxis per primary medical service We will continue to follow patient during inpatient stay
--- NOTE | 2021-03-17 13:47 | P.PCN ---
Date of Procedure: 03/17/21 Preoperative Diagnosis: Right hip greater trochanteric bursitis Postoperative Diagnosis: Same Procedure(s) Performed: Right hip greater trochanteric bursa steroid injection Anesthesia: local Surgeon: Allen Smith Estimated Blood Loss (ml): 0 Pathology: none sent Condition: stable Disposition: no change Description of Procedure: We discussed the injection at bedside prior to the procedure. The patient was in agreement and wanted to proceed. A consent form was obtained prior to the procedure, nursing staff was available to document this. Patient was placed in the lateral position, the skin was prepped with 1 chlorhexidine swab and one alcohol swabs. A 22-gauge needle was then used to inject 8 mL 1% plain lidocaine and 40 mg of Depo-Medrol. A bandage was then placed, patient tolerated procedure well.
--- NOTE | 2021-03-17 15:44 | P.PN ---
Subjective 30-year-old female came in with complaints of severe low back pain. Patient had history of L4-L5 herniated disc. Patient was evaluated by neurology. Patient does have a radical op the evening valid the patient patient had a repeat MRI repeat MRI official reading from radiology is pending although spinal surgeon evaluated the patient MRI was reviewed by him apparently there is improvement in herniation of L4-L5 and there is desiccation at L4-L5 and L5-S1. Patient was on the systemic steroids here patient was evaluated by pain management patient received epidural steroid injection to the lower lumbar spine. Patient is able to stand and ambulate well. A brace was ordered by Dr. Orozco surgery was cleared for discharge. Patient was given prescription for [place] from arthritic perspective and patient was started on Neurontin on this hospitalization during her admission prescription of which will be provided to the patient as well. Patient will be discharged today. 03/16/2021 As patient had continued pain in the back, spinal surgeon recommended an MRI of the thoracic spine which was obtained which showed disc prolapse at multiple le vels and thoracic spine with moderate thecal compression. Further management as per spinal surgery. Patient is still complaining of severe pain. MRI of the lumbar spine did not show any significant abnormality. 03/17/2021 Patient is still complaining of severe lower back pain with pain radiating to the right lower extremity, patient is comparing of radical her pain. MRI of the thoracic spine doesn't explain her symptoms. Because of this reason patient had right hip injection with concerns of greater trochanteric bursitis. Patient was started on the box and and spinal surgery recommended discharge tomorrow if patient's pain improves, then also recommending EMG as an outpatient to evaluate for severe peripheral neuropathy and radicalopathy without involvement of lumbar spine. Constitutional: Denied any fatigue denied any fever. Cardio vascular: denied any chest pain, palpitations Gastrointestinal denied any nausea vomiting Pulmonary: Denied any shortness of breath cough Neurologic denied any new focal deficits All inpatient medications were reviewed and appropriate changes in these medications as dictated in the interval history and assessment and plan. PHYSICAL EXAMINATION: GENERAL: The patient is alert and oriented x3, not in any acute distress. Well developed, well nourished. HEENT: Pupils are round and equally reacting to light. EOMI. No scleral icterus. No conjunctival pallor. Normocephalic, atraumatic. No pharyngeal erythema. No thyromegaly. CARDIOVASCULAR: S1 and S2 present. No murmurs, rubs, or gallops. PULMONARY: Chest is clear to auscultation, no wheezing or crackles. ABDOMEN: Soft, nontender, nondistended, normoactive bowel sounds. No palpable organomegaly. MUSCULOSKELETAL: No joint swelling or deformity. EXTREMITIES: No cyanosis, clubbing, or pedal edema. NEUROLOGICAL: Gross neurological examination did not reveal any focal deficits. SKIN: No rashes. Severe back pain: Radical apathy as mentioned above because of continued pain patient is not being discharged today -Thoracic spine disc herniation with some thecal compression it's doesn't explain her symptoms -Anxiety disorder T Objective - Vital Signs Vital signs: Vital Signs Temp 98.2 F 03/17/21 15:00 Pulse 102 H 03/17/21 15:00 Resp 18 03/17/21 15:00 BP 143/71 03/17/21 15:00 Pulse Ox 97 03/17/21 15:00 Intake & Output 03/16/21 03/17/21 03/17/21 18:59 06:59 18:59 Intake Total 240 777 Balance 240 777 Intake: Oral 240 777 Other: Voiding Method Toilet Toilet Toilet # Voids 2 3 - Labs CBC & Chem 7: 03/15/21 04:21 03/15/21 04:21 Labs: Abnormal Lab Results - Last 24 Hours (Table) 03/16/21 03/16/21 03/17/21 Range/Units 17:10 20:59 07:23 POC Glucose (mg/dL) 153 H 154 H 121 H (75-99) mg/dL 03/17/21 Range/Units 11:50 POC Glucose (mg/dL) 134 H (75-99) mg/dL
[2021-03-17 16:53] LABS: Glucose,Whole Blood 172 mg/dL (75-99)
[2021-03-17] MEDS: methocarbamoL 500 MG TAB PO SCH ×2 (17:33→21:57)
--- NOTE | 2021-03-17 17:40 | P.CNNES ---
History of Present Illness Consult date: 03/17/21 Requesting physician: Allen mSith Reason for Consult: Headaches, neuritis History of Present Illness: Patient is a 30-year-old female who came to the hospital on 03/14/2021 with chief complaints of back pain. Patient has long-standing history of chronic back pain. Patient states that in 2018 she was in [place] in the parking, when she stepped in a hole and twisted her left ankle. Shortly after on the same da y, she twisted the same ankle again when she stepped on another hole. Patient developed problem with the ankle, and as a result developed lateral shift in the right hip. Patient started seeing physical therapy but the symptoms got worse. She then started seeing chiropractor, which helped, but she felt it was only "Band-Aid on the problem". Patient has been following up with orthopedics spine, since early September 2020. She underwent MRI of the lumbar spine was previously performed, which revealed bulging disc. She underwent right-sided L4 5 transforaminal epidural steroid injection on 11/30/2020 with minimal improvement. She then underwent another session of right-sided L4 5 transforam inal epidural steroid injection and right-sided greater trochanteric bursa injection on 01/25/2021, which minimally helps her. Patient states that sitting makes her symptoms worse. On Sunday, 4 days ago, she couldn't walk due to pain. She couldn't get out of the car or get out of the toilet, and any turning would throw her back into a spasm. She was having pain in the right low back region, extending to the right hip region and then upper lateral thigh region on the right. She also gets numbness and tingling in the right high region. Her left ankle is not bothersome anymore. Patient underwent MRI of the lumbar spine from 03/15/2021 shows degenerative disc disease at L4 5 and L5-S1. No spinal stenosis. No fracture. MRI of thoracic spine 03/16/2021 shows disc bulges at T2 3, T5 6, T7 8 mild to moderate thecal sac impression. There may be some cord contact at C5 6 without cord deformity. T2 3 cord flattening on the left may be present although cord contact is not clearly identified. MRI of the cervical spine 03/16/2021 showed mild disc bulging present at C5 6 with moderate anterior thecal sac flattening. No stenosis is present. Foraminal narrowing C4 5, C5 6 secondary to mild uncovertebral joint hypertrophy. Blood test shows normal CBC, PTT, CMP, TSH, UA. Patient has been seen by orthopedic surgery Dr. Barry Steiner, and according to his report, patient's MRI of the lumbar spine shows improvement as compared to September MRI of lumbar spine with L4 5 HNP interval resorption and decreased stenosis. Patient has undergone lumbar L4 5 ROSA 2 days ago on 03/15/2021. Today she has undergone right hip greater trochanteric bursa steroid injection. Patient at home was on Lexapro 20 mg, Flexeril 10 mg 3 times a day, ibuprofen 600 mg, phentermine 37.5 mg daily. Also on control pills. At present she is also on gabapentin 600 mg 3 times a day started yesterday, ibuprofen 800 mg every 8 hours scheduled, Dilaudid was not working therefore it was stopped. At present patient states that she cannot lift her right leg out of bed. Any time she is twisting her back, like trying to wipe herself, throws her back into spasm and freezes. The low back pain is extending to the right hip to the right upper lateral thigh region. It even hurts to touch. Patient denies any bowel or bladder issues, no incontinence or urgency. Patient also has developed headache pointing to the back of the head and neck region, that extends to the sides on her temples. The headache started yesterday. She has history of intermittent headaches in the past. She rates her headache 6/10, not as severe as compared to the back problem. Her eyes hurt. She does not drink excessive caffeine. She does have history of migraines, and she gets migraines only when she is stressed out, exposed to bright light. Review of Systems As above in detail. All other 14 points of review of systems reviewed and noncontributory. Denies any chest pain shortness of breath wheezing or cough. Denies any fever. Complains of headache. No weight loss. Patient complains of some diarrhea. Denies any problem with bowel or bladder control. Denies any vision loss, no angina, no cough. Denies anemia, no diabetes or hypothyroidism. Past Medical History Additional Past Medical History / Comment(s): Chronic R hip/R lower back pain since injury 2 yrs ago/bulging disc/herniated disc, tachycardia with anxiety, endometriosis/ovarian cysts. History of Any Multi-Drug Resistant Organisms: None Reported Additional Past Surgical History / Comment(s): surgery for ovarian cyst/endometriosis. pain clinic procedures; steroid injections Past Anesthesia/Blood Transfusion Reactions: No Reported Reaction Smoking Status: Never smoker - Past Family History Mother Family Medical History: No Reported History Additional Family Medical History / Comment(s): Mother is healthy Father Family Medical History: Hypertension, Osteoarthritis (OA) Medications and Allergies Home Medications Medication Instructions Recorded Confirmed Type Cyclobenzaprine [Flexeril] 10 mg PO TID PRN #15 tab 09/13/20 03/14/21 Rx Escitalopram [Lexapro] 20 mg PO DAILY 09/13/20 03/14/21 History Ibuprofen [Motrin] 600 mg PO Q8HR PRN #20 tab 09/13/20 03/14/21 Rx Phentermine HCl [Adipex-P] 37.5 mg PO DAILY 12/27/20 03/14/21 History Nf-Felisha Control 1 tab PO DAILY 01/24/21 03/14/21 History HYDROcodone/APAP 5-325MG [[place] 1 tab PO Q6HR PRN 3 Days #12 tab 03/14/21 Rx 5-325] Gabapentin [Neurontin] 300 mg PO TID PRN #20 cap 03/15/21 Rx Allergies Allergy/AdvReac Type Severity Reaction Status Date / Time amphetamine aspartate AdvReac SOB Verified 03/15/21 13:41 [From Adderall] amphetamine sulfate AdvReac SOB Verified 03/15/21 13:41 [From Adderall] dextroamphetamine saccharate AdvReac SOB Verified 03/15/21 13:41 [From Adderall] dextroamphetamine sulfate AdvReac SOB Verified 03/15/21 13:41 [From Adderall] Physical Examination - Vital Signs Vital Signs: Vital Signs Temp Pulse Resp BP BP Pulse Ox 03/17/21 07:00 98.0 F 88 18 138/77 97 03/17/21 02:45 80 18 03/17/21 01:24 97.7 F 80 18 120/76 97 03/16/21 21:09 20 03/16/21 19:22 98.5 F 119 H 20 144/83 98 03/16/21 15:00 98.1 F 108 H 18 158/74 93 L 03/16/21 13:59 18 Intake and Output 03/16/21 03/17/21 03/17/21 22:59 06:59 14:59 Intake Total 237 Balance 237 Intake: Oral 237 Other: Voiding Method Toilet Toilet Toilet # Voids 1 2 Patient is young female, very pleasant, in no acute distress. Patient is alert awake oriented to time place and person. Speech and language functions are normal. Attention, concentration and fund of knowledge is adequate. On cranial examination, pupils are round and reacting to light, visual garg are full on confrontation, extraocular muscles are intact with no nystagmus. Face is symmetric, tongue protrudes to the midline. Palatal elevation and sensation normal, hearing and shoulder shrug normal, facial sensation normal. Shoulder shrug normal. On muscle strength testing, there is no pronator drift and the strength is normal in arms distally and proximally. Her strength is normal in the left lower extremity. On the right side ankle dorsiflexion is 5, knee extension 5- 4+, and hip flexion 4, with lot of pain and guarding, with perhaps some component of giveaway weakness. I could not check hip adductors and abductors because of severe pain. Patient was crying. Deep tendon reflexes 2+ to 3 in the upper extremities, 3 at the knees, 2+ ankles and plantars downgoing. No clonus. Sensory to touch is decreased in the right thigh region. Sensations are equal in the lower legs in L4, L5 and S1 dermatomes. Cerebellar function showed no ataxia for [id number] testing. No dysdiadochokinesia. Tone and bulk of muscles normal. Gait not checked. On general examination, there is no carotid bruit or murmur, S1-S2 audible. Abdomen is soft nontender. Chest is clear. Peripheral pulses are present. No edema. Results - Laboratory Findings CBC and BMP: 03/15/21 04:21 03/15/21 04:21 Abnormal Lab Findings: Abnormal Labs 03/14/21 03/14/21 03/15/21 14:48 20:17 04:21 Lymphocytes # 0.5 L Creatinine 0.47 L Glucose POC Glucose (mg/dL) Urine Appearance Cloudy H Urine Bacteria Occasional H Urine Mucus Rare H 0603/15/21 03/15/21 04:21 11:40 17:24 Lymphocytes # Creatinine Glucose 169 H POC Glucose (mg/dL) 146 H 142 H Urine Appearance Urine Bacteria Urine Mucus 03/15/21 03/16/21 03/16/21 21:20 06:49 11:47 Lymphocytes # Creatinine Glucose POC Glucose (mg/dL) 135 H 152 H 137 H Urine Appearance Urine Bacteria Urine Mucus 03/16/21 03/16/21 03/17/21 17:10 20:59 07:23 Lymphocytes # Creatinine Glucose POC Glucose (mg/dL) 153 H 154 H 121 H Urine Appearance Urine Bacteria Urine Mucus 03/17/21 11:50 Lymphocytes # Creatinine Glucose POC Glucose (mg/dL) 134 H Urine Appearance Urine Bacteria Urine Mucus Assessment and Plan Assessment: * Significant degenerative disc disease L4-L5 and L5-S1 levels. * Bulging disks L4 5 and L5-S1 levels. * Right hip dysfunction. * Stress-induced migraine headaches. Plan: * Agree with continuing gabapentin 600 mg 3 times a day, ibuprofen 800 mg every 8 hours and Solu-Medrol 60 mg IV every 6 hours as well. * Patient is getting back spasms for which I will start her on Robaxin 500 mg every 8 hours. Patient has failed Flexeril. * We will also check blood tests including B12, folate, RA, MMA, Lyme titer, immunofixation, ESR and JASPAL. * Patient was informed that she has just undergone right hip injection today and ROSA couple days ago. It usually takes a couple days for therapeutic benefit to manifest and she probably will improve in the next couple days. * I would also recommend EMG and nerve conduction of right lower extremity as an outpatient to evaluate for electrodiagnostic evidence of L3-4 radiculopathy. Her knee reflex is normal. * We will follow. Time with Patient: Greater than 30
[2021-03-17 20:18] LABS: Glucose,Whole Blood 220 mg/dL (75-99)
[2021-03-18] MEDS: KETOROLAC 15 MG/ML 1 ML VIAL IVP SCH ×3 (00:45→12:07)
[2021-03-18] MEDS: methylPREDNISolone SOD SUCCI 125 MG/2 ML VIAL IV SCH ×3 (00:45→12:08)
[2021-03-18 01:45] LABS: Folate, Serum 10.1 ng/mL
[2021-03-18 06:49] LABS: Glucose,Whole Blood 129 mg/dL (75-99)
[2021-03-18 07:30] VITALS: BP 138/76; PULSE 77; RESP 18; TEMP 98.6
[2021-03-18] MEDS: INSULIN ASPART (NovoLOG) 100 UNIT/ML VIAL SQ SCH ×2 (08:26→12:09)
[2021-03-18] MEDS ORDERED: ONDANSETRON 4 MG/2 ML VIAL IVP PRN (08:33)
[2021-03-18] MEDS: GABAPENTIN 300 MG CAP PO SCH ×2 (08:51→15:54)
[2021-03-18] MEDS: IBUPROFEN 800 MG TAB PO SCH ×2 (08:51→15:54)
[2021-03-18] MEDS: ESCITALOPRAM 20 MG TAB PO SCH (08:51)
[2021-03-18] MEDS: methocarbamoL 500 MG TAB PO SCH ×2 (08:52→12:08)
[2021-03-18] MEDS: NON FORMULARY DRUG (Phentermine Hcl [Adipex-P] 37.5 MG Tablet) PO SCH (08:53)
[2021-03-18] MEDS: HEPARIN SODIUM,PORCINE/PF 5,000 UNIT/0.5 ML SYRINGE SQ SCH (08:53)
[2021-03-18 12:10] LABS: Glucose,Whole Blood 132 mg/dL (75-99)
--- NOTE | 2021-03-18 12:56 | P.PN ---
Subjective Progress Note Date: 03/18/21 Principal diagnosis: Neuritis; lumbar radiculopathy Patient was seen at bedside early this afternoon with father. Patient is lying in semirecumbent position states she is still in moderate amount of pain. Patient says she thinks they injection into her greater trochanteric bursa did help somewhat. She says she doesn't have much pain in the area where the injection was given. However, patient says she still gets pain in the lumbar spine. Patient says she has not been able sleep and this hasn't changed. Patient says not much has worked for pain. Patient denies chest pain, fever, chest breath, nausea, vomiting, change in vision, saddle anesthesia, loss of bowel/bladder control.. Objective - Vital Signs Vital signs: Vital Signs Temp 98.6 F 03/18/21 07:30 Pulse 77 03/18/21 07:30 Resp 18 03/18/21 08:00 BP 138/76 03/18/21 07:30 Pulse Ox 98 03/18/21 07:30 Intake & Output 03/17/21 03/18/21 03/18/21 18:59 06:59 18:59 Intake Total 1017 180 Balance 1017 180 Intake: Oral 1017 180 Other: Voiding Method Toilet Toilet Toilet # Voids 2 2 - Exam Patient is alert and oriented 3 appears well-nourished well-hydrated is in no acute distress. They does not appear septic. On exam the patient has no tenderness to palpation of her thoracic or lumbar spine. There is no edema or ballottement sign. Lower extremities with 5 out of 5 strength in all major muscle groups, however she has a weakness in the right lower extremity dorsiflexion plantar flexion. She has more weakness with hip flexion on the right and does not want to do this due to pain. She is tensioning signs when this is straight leg raise. Upper extremities show 5/5 strength in all major muscle groups. There is FROM that is painless of the b/l UE and LE in all major joints. They are intact to light touch sensation in L2 to S1 nerve distribution. 2/4 DTR all Patient has palpable dorsalis pedis was posterior tibial pulses. Compartments are soft and compressible. Patient has pain more so in the mid lumbar region. Patient shows a negative Homans, Carter's, negative Babinski's negative clonus bilaterally. negative straight leg raise bilaterally. Tensioning signs of contralateral straight leg raise. Cranial nerves II through XII are grossly intact. Overall alignment is well-maintained in the sagittal coronal planes. No SI joint tenderness bilaterally - Labs CBC & Chem 7: 03/15/21 04:21 03/15/21 04:21 Labs: Abnormal Lab Results - Last 24 Hours (Table) 03/17/21 03/17/21 03/18/21 Range/Units 16:50 20:17 06:47 POC Glucose (mg/dL) 172 H 220 H 129 H (75-99) mg/dL 03/18/21 Range/Units 12:09 POC Glucose (mg/dL) 132 H (75-99) mg/dL Assessment and Plan Assessment: 30-year-old female acute on chronic low back pain history L4 5 HNP with exacerbation Plan: 1. Neuritis; lumbar radiculopathy - As previous stated in previous orthopedic notes, Dr. Stokes has reviewed the most recent MRI of the lumbar spine with patient and family. Surgery injection from yesterday's, 03/17/2021 into right greater trochanteric bursa and patient feels some relief today. At this time there is no urgent surgical intervention needed. Patient has received multiple ROSA into back. Patient says she has also tried physical therapy for this issue when it flared up several months ago, without relief. We do recommend patient to follow-up in outpatient setting in [address] Steiner. At this time patient is orthopedically stable and ready for discharge. We are signing off. Please do not hesitate to contact us for any other further questions. 2. Pain management - gabapentin and muscle relaxants 3. Appreciate medical management 4. PT/OT - weightbearing as tolerated 5. Discharge planning - plan for discharge home today, 03/18/2021 Time with Patient: Less than 30
--- NOTE | 2021-03-18 16:05 | P.DS ---
Providers Date of admission: 03/16/21 20:14 Attending physician: Rodrigo Fischer Consults: 03/14/21 18:37 Consult Physician Routine Consulting Provider: Barry Steiner Consult Reason/Comments: Intractable back pain Do you want consulting provider notified?: Yes 03/15/21 12:51 Consult Physician Routine Consulting Provider: August Torres Consult Reason/Comments: Epidural steroid injection Do you want consulting provider notified?: Yes 03/17/21 10:24 Consult Physician Routine Consulting Provider: Jeromy Stephenson Consult Reason/Comments: Headaches, neuritis Do you want consulting provider notified?: Yes Primary care physician: [facility] Hospital Course: 30-year-old female came in with complaints of severe low back pain. Patient had history of L4-L5 herniated disc. Patient was evaluated by neurology. Patient does have a radical op the evening valid the patient patient had a repeat MRI repeat MRI official reading from radiology is pending although spinal surgeon evaluated the patient MRI was reviewed by him apparently there is improvement in herniation of L4-L5 and there is desiccation at L4-L5 and L5-S1. Patient was on the systemic steroids here patient was evaluated by pain management patient received epidural steroid injection to the lower lumbar spine. Patient is able to stand and ambulate well. A brace was ordered by Dr. Orozco surgery was cleared for discharge. Patient was given prescription for [place] from arthritic perspective and patient was started on Neurontin on this hospitalization during her admission prescription of which will be provided to the patient as well. Patient will be discharged today. 03/16/2021 As patient had continued pain in the back, spinal surgeon recommended an MRI of the thoracic spine which was obtained which showed disc prolapse at multiple levels and thoracic spine with moderate thecal compression. Further management as per spinal surgery. Patient is still complaining of severe pain. MRI of the lumbar spine did not show any significant abnormality. 03/17/2021 Patient is still complaining of severe lower back pain with pain radiating to the right lower extremity, patient is comparing of radical her pain. MRI of the thoracic spine doesn't explain her symptoms. Because of this reason patient had right hip injection with concerns of greater trochanteric bursitis. Patient was started on the box and and spinal surgery recommended discharge tomorrow if patient's pain improves, then also recommending EMG as an outpatient to evaluate for severe peripheral neuropathy and radicalopathy without involvement of lumbar spine. 03/18/2021 Patient is able to ambulate still complaining of severe pain. Patient was cleared for discharge from orthopedic perspective patient will be discharged today PHYSICAL EXAMINATION: GENERAL: The patient is alert and oriented x3, not in any acute distress. Well developed, well nourished. HEENT: Pupils are round and equally reacting to light. EOMI. No scleral icterus. No conjunctival pallor. Normocephalic, atraumatic. No pharyngeal erythema. No thyromegaly. CARDIOVASCULAR: S1 and S2 present. No murmurs, rubs, or gallops. PULMONARY: Chest is clear to auscultation, no wheezing or crackles. ABDOMEN: Soft, nontender, nondistended, normoactive bowel sounds. No palpable organomegaly. MUSCULOSKELETAL: No joint swelling or deformity. EXTREMITIES: No cyanosis, clubbing, or pedal edema. NEUROLOGICAL: Gross neurological examination did not reveal any focal deficits. SKIN: No rashes. Severe back pain: Radiculopathy as mentioned above , patient underwent extensive workup most of the workup is negative except for thoracic spine showed disc herniation with some thecal compression although her findings doesn't explain the symptoms. -Thoracic spine disc herniation with some thecal compression it's doesn't explain her symptoms -Anxiety disorder Patient Condition at Discharge: Stable Plan - Discharge Summary Discharge Rx Participant: No New Discharge Prescriptions: New HYDROcodone/APAP 5-325MG [[place] 5-325] 1 tab PO Q6HR PRN 3 Days #12 tab PRN Reason: Pain Gabapentin [Neurontin] 300 mg PO TID PRN #20 cap PRN Reason: Pain methylPREDNISolone Dose Pack [Medrol Dose Pack] 4 mg PO DIRECTED #21 package methocarbamoL [Robaxin] 500 mg PO QID #60 tab Ondansetron Odt [Zofran Odt] 4 mg PO Q8HR PRN #20 tab PRN Reason: Nausea And Vomiting Continue Escitalopram [Lexapro] 20 mg PO DAILY Cyclobenzaprine [Flexeril] 10 mg PO TID PRN #15 tab PRN Reason: Muscle Spasm Ibuprofen [Motrin] 600 mg PO Q8HR PRN #20 tab PRN Reason: Pain Phentermine HCl [Adipex-P] 37.5 mg PO DAILY Nf-Felisha Control 1 tab PO DAILY Discharge Medication List Cyclobenzaprine [Flexeril] 10 mg PO TID PRN #15 tab 09/13/20 [Rx] Escitalopram [Lexapro] 20 mg PO DAILY 09/13/20 [History] Ibuprofen [Motrin] 600 mg PO Q8HR PRN #20 tab 09/13/20 [Rx] Phentermine HCl [Adipex-P] 37.5 mg PO DAILY 12/27/20 [History] Nf-Felisha Control 1 tab PO DAILY 01/24/21 [History] HYDROcodone/APAP 5-325MG [[place] 5-325] 1 tab PO Q6HR PRN 3 Days #12 tab 03/14/21 [Rx] Gabapentin [Neurontin] 300 mg PO TID PRN #20 cap 03/15/21 [Rx] Ondansetron Odt [Zofran Odt] 4 mg PO Q8HR PRN #20 tab 03/18/21 [Rx] methocarbamoL [Robaxin] 500 mg PO QID #60 tab 03/18/21 [Rx] methylPREDNISolone Dose Pack [Medrol Dose Pack] 4 mg PO DIRECTED #21 package 03/18/21 [Rx] Follow up Appointment(s)/Referral(s): Kacy Davila MD [Primary Care Provider] - 3 Days (EMG as outpatient Please call during office hours to make appointment) Barry Steiner DO [Doctor of Osteopathic Medicine] - 1 Week (Please call for appointment time when the office is open) Patient Instructions/Handouts: Acute Low Back Pain (ED) Discharge/Stand Alone Forms: Anes Pain/[facility] Instructions
== END 2021-03-18 16:15 | disposition home or self-care (01) | DRG 552 ==
LOC: EC 12:53 → 6NMEDSUR 20:33 → OBSVTOIN 03-16 20:14
PROVIDERS: ADMIT Hospitalist; ATTEND Hospitalist
PROC: 3E0R33Z Introduction of Anti-inflammatory into Spinal Canal, Percutaneous Approach (ICD-10-PCS; principal; 2021-03-15 14:15)
PROC: 3E0R3BZ Introduction of Anesthetic Agent into Spinal Canal, Percutaneous Approach (ICD-10-PCS; principal; 2021-03-15 14:15)
PROC: 3E0U33Z Introduction of Anti-inflammatory into Joints, Percutaneous Approach (ICD-10-PCS; 2021-03-17)
PROC: 3E0U3BZ Introduction of Anesthetic Agent into Joints, Percutaneous Approach (ICD-10-PCS; 2021-03-17)
DX: M48.061 Spinal stenosis, lumbar region without neurogenic claudication (principal); M51.16 Intervertebral disc disorders with radiculopathy, lumbar region; M51.17 Intervertebral disc disorders with radiculopathy, lumbosacral region; M70.61 Trochanteric bursitis, right hip; F41.9 Anxiety disorder, unspecified; G43.909 Migraine, unspecified, not intractable, without status migrainosus; N80.9 Endometriosis, unspecified; G89.29 Other chronic pain; N83.209 Unspecified ovarian cyst, unspecified side; Z79.899 Other long term (current) drug therapy; Z82.49 Family history of ischemic heart disease and other diseases of the circulatory system; Z79.3 Long term (current) use of hormonal contraceptives; Z79.891 Long term (current) use of opiate analgesic; Z88.8 Allergy status to other drugs, medicaments and biological substances; Z20.822 Contact with and (suspected) exposure to COVID-19
CPT/HCPCS: 36415; 62323; 72141; 72146; 72158; 80048; 80053; 81001; 81025; 82607; 82746; 83921; 84207; 85025; 85652; 85730; 86038; 86334; 86431; 86618; 87635; 96372; 99152; 99284

== ENCOUNTER 2022-02-23 16:35 | Inpatient (IN) | payer BC ==
--- NOTE | 2022-02-22 20:34 | P.HPOB ---
History of Present Illness H&P Date: 02/22/22 Chief Complaint: Preeclampsia This is a 31 y.o. female, 1, para 0, with an estimated date of confinement of 03/16/2022, estimated gestational age of 37-0/7 weeks, who presents for cervidil cervical ripening followed by oxytocin induction of labor due to gestational hypertension and preeclampsia. She has had elevated blood pressures off & on since around 25-26 weeks. She also had issues with dizziness earlier in . She currently has occasional headaches. She has occasional irregular contractions. Her protein/creatinine ratio this week was 0.3. Previous ratios have been normal. Her liver enzymes are normal. labs: Hepatitis B surface antigen-neg RPR-NR HIV-NR Rubella-immune Blood type-A positive Antibody screen-neg Hemoglobin-12.3 Toxoplasma-neg Random glucose-85 1 hr. GTT-114 GBS-neg OB Hx: . [employer] Specialist Hx: No hx of STDs. Social Hx: . Currently off work. ANIMAL LABORATORY TECHNICIAN, going to school for RN. Review of Systems Constitutional: Denies chills, Denies fever Eyes: denies blurred vision, denies pain Ears, nose, mouth and throat: Reports headache, Denies sore throat Cardiovascular: Denies chest pain, Denies shortness of breath Respiratory: Denies cough Gastrointestinal: Reports abdominal pain (irregular contractions) Genitourinary: Reports pelvic pain, Reports Musculoskeletal: Reports low back pain (y) Integumentary: Denies pruritus, Denies rash Neurological: Denies numbness, Denies weakness Psychiatric: Reports anxiety Past Medical History Additional Past Medical History / Comment(s): Chronic R hip/R lower back pain since injury 2 yrs ago/bulging disc/herniated disc, tachycardia with anxiety, endometriosis/ovarian cysts. History of Any Multi-Drug Resistant Organisms: None Reported Additional Past Surgical History / Comment(s): surgery for ovarian cyst/endometriosis. pain clinic procedures; steroid injections Past Anesthesia/Blood Transfusion Reactions: No Reported Reaction Smoking Status: Never smoker Past Alcohol Use History: None Reported Past Drug Use History: None Reported - Past Family History Mother Family Medical History: No Reported History Additional Family Medical History / Comment(s): Mother is healthy Father Family Medical History: Hypertension, Osteoarthritis (OA) Medications and Allergies Home Medications Medication Instructions Recorded Confirmed Type Pnv,Calcium 72/Iron/Folic Acid 1 tab PO DAILY 12/05/21 02/23/22 History [ Plus Tablet] Allergies Allergy/AdvReac Type Severity Reaction Status Date / Time amphetamine aspartate AdvReac SOB Verified 02/23/22 16:52 [From Adderall] amphetamine sulfate AdvReac SOB Verified 02/23/22 16:52 [From Adderall] dextroamphetamine saccharate AdvReac SOB Verified 02/23/22 16:52 [From Adderall] dextroamphetamine sulfate AdvReac SOB Verified 02/23/22 16:52 [From Adderall] Exam Osteopathic Statement: *. No significant issues noted on an osteopathic structural exam other than those noted in the History and Physical/Consult. HEENT: within normal limits Heart: regular rate and rhythm Lungs: clear to auscultation bilaterally Abdomen: , non-tender Extremities: neg. Donell's heart tones: 140's by doppler Cervix: FT/60%/-2 Assessment and Plan (1) 37 weeks gestation of Current Visit: No Status: Acute Code(s): Z3A.37 - 37 WEEKS GESTATION OF SNOMED Code(s): 78811516 (2) Preeclampsia Current Visit: No Status: Acute Code(s): O14.90 - UNSPECIFIED PRE-ECLAMPSIA, UNSPECIFIED TRIMESTER SNOMED Code(s): 799487926 Plan: Admit for cervidil cervical ripening followed by oxytocin induction of labor.
[2022-02-23] MEDS ORDERED: BUTORPHANOL 1 MG/ML 1 ML VIAL IV PRN (16:52)
[2022-02-23] MEDS ORDERED: ZOLPIDEM 5 MG TAB PO PRN (16:52)
[2022-02-23] MEDS ORDERED: DINOPROSTONE 10 MG INSERT.ER VAGINAL ONE (16:52)
[2022-02-23 19:32] LABS: Amorphous Sediment,Urine Rare /hpf; Appearance,Urine Cloudy (Clear); Bacteria,Urine Occasional /hpf; Bilirubin,Urine Negative (Negative); Blood,Urine Large (Negative); Calcium Oxalate Crystals,Urine Moderate /hpf; Color,Urine Yellow; Glucose,Urine (UA) Negative (Negative); Ketones,Urine Negative (Negative); Leukocyte Esterase,Urine Small (Negative); Mucus,Urine Rare /hpf; Nitrite,Urine Negative (Negative); Protein,Urine Trace (Negative); RBC,Urine 85 /hpf (0-5); Specific Gravity,Urine 1.028 (1.001-1.035); Squamous Epithelial Cell,Urine 2 /hpf (0-4); Urobilinogen,Urine <2.0 mg/dL (<2.0); WBC,Urine 8 /hpf (0-5)
[2022-02-23 19:37] LABS: Creatinine,Urine Random 191.8 mg/dL; Protein/Creatinine Ratio,Urine 0.052
[2022-02-24] MEDS ORDERED: METHYLERGONOVINE 0.2 MG/ML 1 ML AMP IM PRN (06:08)
[2022-02-24] MEDS ORDERED: LIDOCAINE 0.5% (PF) 5 MG/ML (50 ML SDV) SQ PRN (06:08)
[2022-02-24] MEDS ORDERED: OXYTOCIN 30 UNITS/500 ML NS 30 UNIT in SALINE 1 500ML.BAG IV SCH ×2 (06:08→18:51)
[2022-02-24] MEDS ORDERED: TERBUTALINE 1 MG/ML VIAL SQ PRN (06:08)
[2022-02-24] MEDS ORDERED: OXYTOCIN 10 UNIT/ML 1 ML VIAL IM PRN (06:08)
[2022-02-24] MEDS ORDERED: LIDOCAINE 1% (10MG/ML) FOR IV START INTRADERMA PRN (06:08)
[2022-02-24] MEDS ORDERED: CARBOPROST TROMETHAMINE 250 MCG/ML 1 ML AMP IM PRN (06:08)
[2022-02-24] MEDS: LACTATED RINGERS 1,000 ML IV SCH ×2 (06:15→12:30)
[2022-02-24 06:32] LABS: Basophils # (A) 0.1 k/uL (0-0.2); Basophils % (A) 1 %; Eosinophils # (A) 0.3 k/uL (0-0.7); Eosinophils % (A) 2 %; HGB 12.5 gm/dL (11.4-16.0); Lymphocytes # (A) 2.4 k/uL (1.0-4.8); Lymphocytes % (A) 15 %; MCH 29.9 pg (25.0-35.0); MCHC 32.1 g/dL (31.0-37.0); MCV 93.2 fL (80.0-100.0); Mean Platelet Volume 7.4; Monocytes # (A) 0.7 k/uL (0-1.0); Monocytes % (A) 4 %; Neutrophils % (A) 78 %; Platelet Count 294 k/uL (150-450); RBC 4.18 m/uL (3.80-5.40); RDW 13.3 % (11.5-15.5); WBC 16.8 k/uL (3.8-10.6)
[2022-02-24] MEDS ORDERED: ROPIVACAINE 5MG/ML 20ML VIAL ONE (11:33)
[2022-02-24] MEDS ORDERED: SODIUM CHLORIDE 0.9% 100 ML BAG ONE (11:33)
[2022-02-24] MEDS ORDERED: fentaNYL (PF) 50 MCG/ML 5 ML AMP ONE (11:33)
--- NOTE | 2022-02-24 17:45 | P.PROBDLV ---
Vaginal Delivery Note - . Vaginal Delivery Note: The patient underwent Cervidil cervical ripening followed by oxytocin induction of labor with artificial rupture membranes with clear fluid noted. She did receive epidural anesthesia once she reached 3 cm. She fairly rapidly changed to 9 cm. Once itching complete, she began pushing. 's head came to a crown. With one further push, the infant's head delivered across the perineum followed by the anterior shoulder and the remainder the infant. Infant was nohemi arabella on mother's abdomen and nose and mouth were bulb suctioned. A viable female infant was noted with scores of 9 at 1 minute and 9 at 5 minutes and infant weight of 7 lbs. 1 oz. Placenta delivered shortly thereafter, intact, with a three-vessel cord. Uterus contracted well after oxytocin was given and uterine massage was carried out. Inspection of the perineum revealed a right periurethral laceration and a second-degree perineal laceration. These areas were anesthetized with 1% lidocaine. The periurethral laceration is sutured with 3-0 Vicryl suture in a running locked fashion. A straight cath was placed and bladder was drained. The second-degree perineal laceration was anesthetized with 1% lidocaine and then sutured with 3-0 and 2-0 Vicryl suture in the usual multilayer fashion. Estimated blood loss is approximately 250 mL's. Both mother and are in stable condition.
[2022-02-24] MEDS ORDERED: LANOLIN CREAM 5 GM TUBE TOPICAL PRN (18:51)
[2022-02-24] MEDS ORDERED: HYDROCORTISONE 2.5% RECTAL CREAM 30 GM TUBE RECTAL PRN (18:51)
[2022-02-24] MEDS ORDERED: BENZOCAINE/MENTHOL SPRAY 1 GM/SPRAY AEROSOL TOPICAL PRN (18:51)
[2022-02-24] MEDS ORDERED: diphenhydrAMINE 25 MG CAP PO PRN (18:51)
[2022-02-24] MEDS ORDERED: ACETAMINOPHEN TAB 325 MG TAB PO PRN (18:51)
[2022-02-24] MEDS ORDERED: diphenhydrAMINE 50 MG/ML 1 ML VIAL IVP PRN ×2 (18:51)
[2022-02-24] MEDS ORDERED: ZOLPIDEM 5 MG TAB PO PRN (18:51)
[2022-02-24] MEDS ORDERED: SIMETHICONE 80 MG CHEWABLE PO PRN (18:51)
[2022-02-24] MEDS ORDERED: diphenhydrAMINE 50 MG CAP PO PRN (18:51)
[2022-02-24] MEDS: SENNOSIDES-DOCUSATE SODIUM 1 EACH TAB PO SCH (20:06)
[2022-02-25] MEDS: IBUPROFEN 600 MG TAB PO PRN ×3 (00:05→15:49)
[2022-02-25 08:47] LABS: Basophils % (A) 0 %; Eosinophils # (A) 0.1 k/uL (0-0.7); Eosinophils % (A) 1 %; HCT 32.8 % (34.0-46.0); HGB 10.4 gm/dL (11.4-16.0); Lymphocytes # (A) 2.1 k/uL (1.0-4.8); Lymphocytes % (A) 19 %; MCH 29.8 pg (25.0-35.0); MCHC 31.8 g/dL (31.0-37.0); MCV 93.6 fL (80.0-100.0); Mean Platelet Volume 7.4; Monocytes # (A) 0.4 k/uL (0-1.0); Monocytes % (A) 3 %; Neutrophils # (A) 8.6 k/uL (1.3-7.7); Neutrophils % (A) 76 %; Platelet Count 257 k/uL (150-450); RBC 3.51 m/uL (3.80-5.40); RDW 13.6 % (11.5-15.5); WBC 11.4 k/uL (3.8-10.6)
[2022-02-25] MEDS: SENNOSIDES-DOCUSATE SODIUM 1 EACH TAB PO SCH ×2 (09:38→19:46)
[2022-02-25] MEDS: PRENATAL VIT-IRON-FOLIC ACID 1 EACH TABLET PO SCH (09:39)
--- NOTE | 2022-02-25 12:07 | P.PNOBGVD ---
Subjective - Subjective Principal diagnosis: Status post vaginal delivery day #1 Interval history: Patient is doing okay. She does have some swelling in her feet. She had initially some heavier bleeding but that has slowed down. Her pain is fairly well controlled. She is urinating without difficulty. She is working on breast-feeding. She denies any headaches or blurry vision at this time. Patient reports: Reports appetite normal, Reports voiding normally, Reports pain well controlled, Reports ambulating normally : doing well, nursing well Objective - Latest Vital Signs Latest vital signs: Vital Signs Temp Pulse Resp BP Pulse Ox 02/25/22 08:00 98.4 F 83 16 142/80 99 02/25/22 04:00 98.3 F 80 16 148/84 02/25/22 00:00 98.3 F 85 16 143/79 02/24/22 20:00 98.2 F 72 16 133/82 02/24/22 16:15 97.9 F 92 16 140/70 02/24/22 15:45 92 16 141/64 02/24/22 15:15 83 16 152/70 02/24/22 15:00 86 16 138/64 02/24/22 14:45 81 16 131/61 02/24/22 14:30 93 16 123/58 02/24/22 14:15 100 16 145/67 Intake and Output 02/24/22 02/25/22 02/25/22 22:59 06:59 14:59 Output Total 132 Balance -132 Output: Output, Quantitative 132 Blood Loss Other: # Voids 2 1 - Exam Extremities: Present: edema (Trace). Absent: tenderness Abdomen: Present: normal appearance, soft. Absent: distention, tenderness Uterus: Present: normal, firm. Absent: tenderness - Labs Labs: Abnormal Lab Results - Last 24 Hours (Table) 02/25/22 Range/Units 08:33 WBC 11.4 H (3.8-10.6) k/uL RBC 3.51 L (3.80-5.40) m/uL Hgb 10.4 L (11.4-16.0) gm/dL Hct 32.8 L (34.0-46.0) % Neutrophils # 8.6 H (1.3-7.7) k/uL Assessment and Plan Assessment: Status post vaginal delivery day #1 Gestational hypertension/preeclampsia-slightly elevated blood pressures today. (1) 37 weeks gestation of Current Visit: No Status: Acute Code(s): Z3A.37 - 37 WEEKS GESTATION OF SNOMED Code(s): 36318707 (2) Preeclampsia Current Visit: No Status: Acute Code(s): O14.90 - UNSPECIFIED PRE-ECLAMPSIA, UNSPECIFIED TRIMESTER SNOMED Code(s): 865870641 Plan: Will continue to observe blood pressures for 1 more day. If she does start to increase her blood pressures above 160 systolic or above 110 diastolic, will start magnesium sulfate. We'll continue to work Breast-feeding.
[2022-02-26] MEDS: IBUPROFEN 600 MG TAB PO PRN (06:00)
[2022-02-26 09:37] VITALS: BP 118/71; PULSE 68; RESP 16; TEMP 97.8
[2022-02-26] MEDS: SENNOSIDES-DOCUSATE SODIUM 1 EACH TAB PO SCH (09:38)
[2022-02-26] MEDS: PRENATAL VIT-IRON-FOLIC ACID 1 EACH TABLET PO SCH (09:38)
--- NOTE | 2022-02-26 10:52 | P.DS ---
Providers Date of admission: 02/23/22 16:35 Expected date of discharge: 02/26/22 Attending physician: Chanda De La Rosa Primary care physician: Stated None - Discharge Diagnosis(es) (1) 37 weeks gestation of Current Visit: No Status: Acute (2) Preeclampsia Current Visit: No Status: Acute Hospital Course: This is a 31-year-old female 1 para 0 at 37 and one sevenths weeks who presented for induction of labor secondary to preeclampsia/gestational hypertension. She underwent Cervidil cervical ripening followed by oxytocin induction of labor and delivered vaginally a viable female on 02/24/2022 with scores of 9 at 1 minute and 9 at 5 minutes and weight is 7 lbs. 1 oz. Her course was essentially uncomplicated however her first day she was having some slightly elevated blood pressures in the 140s over 80s. These blood pressures have resolved to normal. She denies any headaches or blurry vision. She does complain of some swelling in her legs. Lochia is minimal. Pain is well-controlled. She is breast-feeding. Vital si gns are stable. Abdomen is soft with fundus firm and nontender. Extremities show negative Homans. Impression is status post vaginal delivery day #1. Plan is to discharge home today. Routine instructions are given. She is advised follow-up in the office in 1-2 weeks for a blood pressure check and in 6 weeks for check. She is advised to call the office if she has any further questions or concerns prior to her appointment time. She will be given a prescription for ibuprofen and a breast pump. Procedures: Cervidil cervical ripening Oxytocin induction of labor Spontaneous vaginal delivery of a viable female on 02/24/2022 Patient Condition at Discharge: Stable Plan - Discharge Summary New Discharge Prescriptions: New Ibuprofen [Motrin] 600 mg PO Q6HR PRN #60 tab PRN Reason: Mild Pain (Scale 1 To 3) Continue Pnv,Calcium 72/Iron/Folic Acid [ Plus Tablet] 1 tab PO DAILY Discharge Medication List Pnv,Calcium 72/Iron/Folic Acid [ Plus Tablet] 1 tab PO DAILY 12/05/21 [History] Ibuprofen [Motrin] 600 mg PO Q6HR PRN #60 tab 02/26/22 [Rx] Follow up Appointment(s)/Referral(s): Chanda De La Rosa DO [Doctor of Osteopathic Medicine] - 04/03/22 3:30 pm Activity/Diet/Wound Care/Special Instructions: Instructions 1. Do not begin any exercise program for 3 weeks. 2. Do not resume sexual relations for 3 weeks or longer if uncomfortable. 3. You may take tub baths or showers at any time. 4. You may use tampons if desired after 3 weeks. 5. Keep the area of episiotomy (stitches) clean and dry. 6. If you are not nursing, wear a good fitting, supportive bra during the day and limit fluid intake for at least 1 week to prevent breast engorgement. 7. Call the office, [phone], within the next week to make appointment for your 6 week checkup if it has not already been made. 8. Report any of the following occurrences to the doctor promptly: a. Heavy, excessive bleeding b. Chills, fever c. Burning or frequency of urination d. Pain or redness and breasts if nursing e. Increasing pain or swelling in episiotomy (stitches). In addition to the above instructions, the following additional should be followed: 1. No heavy lifting or straining (exercising) until after 6 week checkup. 2. Keep abdominal incision clean and dry: You may wear a dressing if more comfortable. 3. Make office appointment for 10 days after going home or as instructed by her doctor. Discharge Disposition: HOME SELF-CARE
== END 2022-02-26 12:25 | disposition home or self-care (01) | DRG 807 ==
LOC: 4FBP 16:35
PROVIDERS: ADMIT Obstetrics & Gynecology; ATTEND Obstetrics & Gynecology
PROC: 10E0XZZ Delivery of Products of Conception, External Approach (ICD-10-PCS; principal; 2022-02-23)
PROC: 0KQM0ZZ Repair Perineum Muscle, Open Approach (ICD-10-PCS; 2022-02-23)
DX: O14.94 Unspecified pre-eclampsia, complicating childbirth (principal); Z37.0 Single live birth; O70.1 Second degree perineal laceration during delivery; O71.82 Other specified trauma to perineum and vulva; Z3A.37 37 weeks gestation of pregnancy
CPT/HCPCS: 81001; 82570; 84156; 85025; 86850; 86900; 86901

== ENCOUNTER 2022-02-28 23:20 | Inpatient (IN) | payer BC ==
[2022-02-28] MEDS ORDERED: MAGNESIUM SULFATE-WATER PMX 4 GM in WATER FOR INJECTION 1 100ML.BAG IVPB ONE (23:49)
[2022-02-28] MEDS ORDERED: CALCIUM GLUCONATE 1 GM/10 ML VIAL IV PRN (23:49)
[2022-03-01] MEDS: LACTATED RINGERS 1,000 ML IV SCH (00:44)
[2022-03-01] MEDS: MAGNESIUM SULFATE-WATER PMX 20 GM in WATER FOR INJECTION 1 500ML.BAG IV SCH ×3 (00:44→21:51)
[2022-03-01 00:49] LABS: Basophils # (A) 0.1 k/uL (0-0.2); Basophils % (A) 1 %; Eosinophils # (A) 0.5 k/uL (0-0.7); Eosinophils % (A) 5 %; HCT 35.4 % (34.0-46.0); HGB 11.3 gm/dL (11.4-16.0); Lymphocytes # (A) 2.3 k/uL (1.0-4.8); Lymphocytes % (A) 24 %; MCV 93.7 fL (80.0-100.0); Mean Platelet Volume 6.6; Monocytes # (A) 0.4 k/uL (0-1.0); Monocytes % (A) 4 %; Neutrophils # (A) 6.2 k/uL (1.3-7.7); Neutrophils % (A) 65 %; Platelet Count 360 k/uL (150-450); RBC 3.77 m/uL (3.80-5.40); RDW 13.3 % (11.5-15.5); WBC 9.6 k/uL (3.8-10.6)
[2022-03-01 00:55] LABS: Appearance,Urine Clear (Clear); Bilirubin,Urine Negative (Negative); Blood,Urine Negative (Negative); Color,Urine Colorless; Glucose,Urine (UA) Negative (Negative); Ketones,Urine Negative (Negative); Leukocyte Esterase,Urine Negative (Negative); Nitrite,Urine Negative (Negative); PH, Urine 6.5 (5.0-8.0); Protein,Urine Negative (Negative); Specific Gravity,Urine 1.004 (1.001-1.035); Urobilinogen,Urine <2.0 mg/dL (<2.0)
[2022-03-01 01:00] LABS: ALT 18 U/L (4-34); AST 24 U/L (14-36); African American GFR (CKD) >90 (>60 ml/min/1.73 sqM); Blood Urea Nitrogen 7 mg/dL (7-17); LDH 559 U/L (313-618); Non-African American GFR(CKD) >90 (>60 ml/min/1.73 sqM); Uric Acid 5.9 mg/dL (3.7-7.4)
[2022-03-01 01:01] LABS: Creatinine,Urine Random 34.4 mg/dL; Protein/Creatinine Ratio,Urine 0.378
[2022-03-01 01:09] LABS: INR 0.9 (<1.2); Partial Thromboplastin Time 23.9 sec (22.0-30.0); Prothrombin Time 10.4 sec (9.0-12.0)
[2022-03-01] MEDS: KETOROLAC 15 MG/ML 1 ML VIAL IVP PRN ×4 (01:20→18:26)
--- NOTE | 2022-03-01 07:41 | P.HPOB ---
History of Present Illness H&P Date: 03/01/22 Chief Complaint: Preeclampsia with severe features 31-year-old status post normal vaginal delivery day #5 presented to labor and delivery last evening complaining of feeling lightheaded, dizzy, headache, right upper quadrant pain. Her blood pressures were 170s over 100s to 160s over 80s. Her to it labs were all within normal limits except for PC ratio of 0.3. Patient is known to have preeclampsia which is why she was delivered at 37 weeks. Will admit patient for 24 hours of magnesium sulfate, blood pressure monitoring and control. Her preeclamptic diagnosis was again discussed with the patient and all that entails, risks and treatments. Review of Systems All systems: negative Constitutional: Denies chills, Denies fever Eyes: denies blurred vision, denies pain Ears, nose, mouth and throat: Denies headache, Denies sore throat Cardiovascular: Denies chest pain, Denies shortness of breath Respiratory: Denies cough Gastrointestinal: Denies abdominal pain, Denies diarrhea, Denies nausea, Denies vomiting Genitourinary: Denies dysuria, Denies hematuria Musculoskeletal: Denies myalgias Integumentary: Denies pruritus, Denies rash Neurological: Denies numbness, Denies weakness Psychiatric: Denies anxiety, Denies depression Endocrine: Denies fatigue, Denies weight change Past Medical History Additional Past Medical History / Comment(s): Chronic R hip/R lower back pain since injury 2 yrs ago/bulging disc/herniated disc, tachycardia with anxiety, endometriosis/ovarian cysts. History of Any Multi-Drug Resistant Organisms: None Reported Additional Past Surgical History / Comment(s): surgery for ovarian c yst/endometriosis. pain clinic procedures; steroid injections, wisdom teeth Past Anesthesia/Blood Transfusion Reactions: No Reported Reaction Past Psychological History: Anxiety Smoking Status: Former smoker, Vaper Past Alcohol Use History: None Reported Additional Past Alcohol Use History / Comment(s): quit a month before she got Past Drug Use History: None Reported Additional Drug Use History / Comment(s): has used cbd gummies before - Past Family History Mother Family Medical History: No Reported History Additional Family Medical History / Comment(s): Mother is healthy Father Family Medical History: Hypertension, Osteoarthritis (OA) Medications and Allergies Home Medications Medication Instructions Recorded Confirmed Type Vit No.180/Iron/Folic 1 tab PO DAILY 12/05/21 02/28/22 History [ Plus Vitamin-Mineral] Ibuprofen [Motrin] 600 mg PO Q6HR PRN #60 tab 02/26/22 02/28/22 Rx Allergies Allergy/AdvReac Type Severity Reaction Status Date / Time amphetamine aspartate AdvReac SOB Verified 02/28/22 23:30 [From Adderall] amphetamine sulfate AdvReac SOB Verified 02/28/22 23:30 [From Adderall] dextroamphetamine saccharate AdvReac SOB Verified 02/28/22 23:30 [From Adderall] dextroamphetamine sulfate AdvReac SOB Verified 02/28/22 23:30 [From Adderall] Exam Osteopathic Statement: *. No significant issues noted on an osteopathic structural exam other than those noted in the History and Physical/Consult. Vital Signs Temp Pulse Resp BP Pulse Ox 03/01/22 07:30 98.1 F 78 16 133/61 100 03/01/22 06:30 79 18 140/63 97 03/01/22 05:30 79 20 137/63 100 03/01/22 04:30 81 18 145/65 98 03/01/22 03:30 86 18 141/67 99 03/01/22 02:30 81 18 143/68 100 03/01/22 01:13 83 16 145/58 98 03/01/22 00:59 88 17 147/67 98 03/01/22 00:47 16 03/01/22 00:36 86 16 146/67 98 03/01/22 00:27 97.6 F 80 21 150/68 98 03/01/22 00:00 96.9 F L 83 16 151/76 98 02/28/22 23:28 96.9 F L 87 16 170/86 97 Intake and Output 02/28/22 03/01/22 03/01/22 22:59 06:59 14:59 Output Total 1924 200 Balance -1924 Output: Urine 1924 200 Uretheral (Wilson) 300 Other: Voiding Method Indwelling Catheter Weight 109.316 kg Heart: Regular rate and rhythm Lungs: Clear to auscultation bilaterally Abdomen: Soft, nontender, fundus firm Extremities: Negative Homans sign, 2+ pitting edema, 3+ out of 4 DTR on admission Results Result Diagrams: 03/01/22 00:10 03/01/22 00:10 Abnormal Lab Results - Last 24 Hours (Table) 03/01/22 03/01/22 03/01/22 Range/Units 00:10 00:10 00:20 RBC 3.77 L (3.80-5.40) m/uL Hgb 11.3 L (11.4-16.0) gm/dL Creatinine 0.47 L (0.52-1.04) mg/dL U Random Total Protein 13 H (<12) mg/dL Assessment and Plan (1) Status post normal vaginal delivery Current Visit: Yes Status: Acute Code(s): DGR1723 - SNOMED Code(s): 811731121 (2) Severe preeclampsia Current Visit: Yes Status: Acute Code(s): O14.10 - SEVERE PRE-ECLAMPSIA, UNSPECIFIED TRIMESTER SNOMED Code(s): 00614420 Plan: 1. Admit to family place 2. Magnesium sulfate with a 4 g bolus and 2 g an hour 3. Wilson catheter 4. Regular diet if tolerating
--- NOTE | 2022-03-01 11:51 | P.PN ---
Subjective Progress Note Date: 03/01/22 Principal diagnosis: Pospartum preeclampsia Pt. doing ok on Magnesium. Minimal [place]ON. No blurred vision or epigastric pain. Objective - Vital Signs Vital signs: Vital Signs Temp 98.7 F 03/01/22 11:20 Pulse 82 03/01/22 11:20 Resp 16 03/01/22 11:20 BP 157/75 03/01/22 11:20 Pulse Ox 100 03/01/22 11:20 FiO2 Intake & Output 02/28/22 03/01/22 03/01/22 18:59 06:59 18:59 Intake Total 500 Output Total 1924 1924 Balance -1924 Weight 109.316 kg Intake: Intake, IV Titration 500 Amount Magnesium Sulfate-Water 500 Pmx 20 gm In Water For Injection 1 500ml.bag @ 2 GM/HR 50 mls/hr IV .Q10H [facility] Rx#:[id number] Output: Urine 1924 1924 Uretheral (Wilson) 300 Other: Voiding Method Indwelling Catheter Indwelling Catheter - Labs CBC & Chem 7: 03/01/22 00:10 03/01/22 00:10 Labs: Abnormal Lab Results - Last 24 Hours (Table) 03/01/22 03/01/22 03/01/22 Range/Units 00:10 00:10 00:20 RBC 3.77 L (3.80-5.40) m/uL Hgb 11.3 L (11.4-16.0) gm/dL Creatinine 0.47 L (0.52-1.04) mg/dL U Random Total Protein 13 H (<12) mg/dL Assessment and Plan Assessment: pre-eclampsia Plan: Continue Magnesium for 24 hrs. Will observe BPs after stopping Magnesium tomorrow.
[2022-03-01] MEDS: LABETALOL 100 MG TAB PO SCH ×2 (21:38→22:25)
[2022-03-01] MEDS ORDERED: ACETAMINOPHEN TAB 325 MG TAB PO STA (22:16)
[2022-03-02] MEDS: KETOROLAC 15 MG/ML 1 ML VIAL IVP PRN (00:34)
[2022-03-02] MEDS: LACTATED RINGERS 1,000 ML IV SCH (00:39)
[2022-03-02] MEDS: LABETALOL 100 MG TAB PO SCH ×2 (09:16→20:04)
[2022-03-02 10:37] VITALS: RESP 16
--- NOTE | 2022-03-02 13:19 | P.PN ---
Subjective Progress Note Date: 03/02/22 Principal diagnosis: Pospartum preeclampsia Patient has had occasional mild headaches but has not taken anything for pain at this time. She has been ambulating more to mimic what she would be doing home. She did say she felt a little short of breath after ambulating a little bit this morning. She denies any lower abdominal pain or heavy bleeding. She is still pumping her breast milk. Objective - Vital Signs Vital signs: Vital Signs Temp 98.2 F 03/02/22 10:00 Pulse 84 03/02/22 12:00 Resp 16 03/02/22 12:00 BP 146/82 03/02/22 12:00 Pulse Ox 98 03/02/22 08:00 FiO2 Intake & Output 03/01/22 03/02/22 03/02/22 18:59 06:59 18:59 Intake Total 800 2690 240 Output Total 3025 2700 600 Balance -2225 -10 -360 Intake: IV 200 300 Magnesium Sulfate-Water 200 300 Pmx 20 gm In Water For Injection 1 500ml.bag @ 2 GM/HR 50 mls/hr IV .Q10H [facility] Rx#:[id number] Intake, IV Titration 600 710 40 Amount Lactated Ringers 1,000 ml 100 210 40 @ 20 mls/hr IV .Q24H [facility]A Rx#:[id number] Magnesium Sulfate-Water 500 500 Pmx 20 gm In Water For Injection 1 500ml.bag @ 2 GM/HR 50 mls/hr IV .Q10H [facility]A Rx#:[id number] Oral 1680 200 Output: Urine 3025 2700 600 Other: Voiding Method Indwelling Catheter Indwelling Catheter # Voids 1 - Constitutional General appearance: Present: no acute distress - Respiratory Respiratory: bilateral: CTA - Cardiovascular Rhythm: regular Heart sounds: normal: S1, S2 - Labs CBC & Chem 7: 03/01/22 00:10 03/01/22 00:10 Assessment and Plan Assessment: pre-eclampsia Plan: Will continue to monitor blood pressures 1 more day off of magnesium. Patient advised that she can take Tylenol or ibuprofen as needed for headache. She may try Benadryl if needed for insomnia. We'll continue her labetalol 100 mg twice a day at this time.
[2022-03-03] MEDS: LACTATED RINGERS 1,000 ML IV SCH (01:48)
--- NOTE | 2022-03-03 08:02 | P.DS ---
Providers Date of admission: 02/28/22 23:49 Expected date of discharge: 03/03/22 Attending physician: Chanda De La Rosa Primary care physician: Stated None Hospital Course: This is a 31-year-old female 1 para 1 who delivered about a week ago and returned with elevated blood pressures. She was placed on magnesium sulfate seizure prophylaxis for 24 hours and then started on labetalol 100 mg twice a day. Her blood pressures have come down and currently are running in the 140s to 150s over 70s to 80s. She denies any current headaches or blurry vision. She does feel that some of this is related to her anxiety. She was on Lexapro prior to and will follow up with her family doctor to restart this. Vital signs are currently stable. Abdomen is soft with fundus nontender. Lochia is minimal. Impression is preeclampsia. Plan is to discharge home on labetalol 100 mg twice a day. She will continue to check her blood pressures at home and call with any severe range blood pressures. She will return to the office in approximately 1 week for a blood pressure check. Patient Condition at Discharge: Stable Plan - Discharge Summary New Discharge Prescriptions: New Labetalol [Trandate] 100 mg PO BID #28 tab No Action Vit No.180/Iron/Folic [ Plus Vitamin-Mineral] 1 tab PO DAILY Ibuprofen [Motrin] 600 mg PO Q6HR PRN #60 tab PRN Reason: Mild Pain (Scale 1 To 3) Discharge Medication List Vit No.180/Iron/Folic [ Plus Vitamin-Mineral] 1 tab PO DAILY 12/05/21 [History] Ibuprofen [Motrin] 600 mg PO Q6HR PRN #60 tab 02/26/22 [Rx] Labetalol [Trandate] 100 mg PO BID #28 tab 03/03/22 [Rx] Follow up Appointment(s)/Referral(s): Chanda De La Rosa DO [Doctor of Osteopathic Medicine] - 1 Week Discharge Disposition: HOME SELF-CARE
[2022-03-03] MEDS: LABETALOL 100 MG TAB PO SCH (08:23)
[2022-03-03 08:32] VITALS: BP 149/82; PULSE 82; TEMP 97.9
== END 2022-03-03 10:15 | disposition home or self-care (01) | DRG 776 ==
LOC: FBPOP 23:20 → 4FBP 23:49
PROVIDERS: ADMIT Obstetrics & Gynecology; ATTEND Obstetrics & Gynecology
DX: O14.15 Severe pre-eclampsia, complicating the puerperium (principal); O99.345 Other mental disorders complicating the puerperium; F41.9 Anxiety disorder, unspecified; Z82.49 Family history of ischemic heart disease and other diseases of the circulatory system; Z87.891 Personal history of nicotine dependence; Z28.310 Unvaccinated for COVID-19; G89.29 Other chronic pain; M25.551 Pain in right hip; M54.50 Low back pain, unspecified; Z98.890 Other specified postprocedural states; Z88.8 Allergy status to other drugs, medicaments and biological substances; Z82.61 Family history of arthritis
CPT/HCPCS: 81003; 82565; 82570; 83615; 84156; 84450; 84460; 84520; 84550; 85025; 85384; 85610; 85730; 99215

== ENCOUNTER 2024-08-09 08:35 | Emergency (ER) | payer BC, OTHER ==
[2024-08-09] MEDS: IBUPROFEN 600 MG TAB PO STA (09:40)
--- NOTE | 2024-08-09 09:52 | XR ---
2 view chest HISTORY: Cough COMPARISON: None TECHNIQUE: PA and lateral views chest obtained. FINDINGS: The lungs are clear of consolidative, interstitial or masslike opacity. There is no pleural effusion, pleural thickening or pneumothorax. The heart, pulmonary vasculature, mediastinum and jose are within normal limits. Repair of a right clavicle fracture otherwise the osseous structures are intact. IMPRESSION: No significant abnormality. No acute cardiopulmonary disease. [facility], , 08/09/2024 9:50 AM
[2024-08-09] MEDS: IPRATROPIUM-ALBUTEROL 3 ML NEB INHALATION STA (11:07)
--- NOTE | 2024-08-09 11:21 | ED ---
Fever HPI - General Chief Complaint: Fever Stated Complaint: Fever,SOB,Cough Time Seen by Provider: 08/09/24 08:54 Source: patient, RN notes reviewed Mode of arrival: ambulatory Limitations: no limitations - History of Present Illness Initial Comments: 33-year-old female presents emergency department complaint of fever cough congestion bodies. Symptoms have been progressively worsening. Patient was seen by urgent care was diagnosed with URI given steroids. She states she has not started them. Patient states she has had worsening dyspnea, wheezing noted. Patient states she has no history of asthma denies any GI symptoms. Patient offers no complaints. - Related Data Home Medications Medication Instructions Recorded Confirmed Vit No.180/Iron/Folic 1 tab PO DAILY 12/05/21 02/28/22 [ Plus Vitamin-Mineral] Previous Rx's Medication Instructions Recorded Ibuprofen [Motrin] 600 mg PO Q6HR PRN #60 tab 02/26/22 Labetalol [Trandate] 100 mg PO BID #28 tab 03/03/22 Albuterol Nebulized [Ventolin 2.5 mg INHALATION Q4H PRN #75 ml 08/09/24 Nebulized] Azithromycin [Zithromax Z Pack] 0 tab PO DIRECTED #6 tab 08/09/24 Allergies Allergy/AdvReac Type Severity Reaction Status Date / Time amphetamine aspartate AdvReac SOB Verified 08/09/24 09:05 [From Adderall] amphetamine sulfate AdvReac SOB Verified 08/09/24 09:05 [From Adderall] dextroamphetamine saccharate AdvReac SOB Verified 08/09/24 09:05 [From Adderall] dextroamphetamine sulfate AdvReac SOB Verified 08/09/24 09:05 [From Adderall] Review of Systems ROS Statement: Those systems with pertinent positive or pertinent negative responses have been documented in the HPI. ROS Other: All systems not noted in ROS Statement are negative. Past Medical History Additional Past Medical History / Comment(s): Chronic R hip/R lower back pain since injury 2 yrs ago/bulging disc/herniated disc, tachycardia with anxiety, e ndometriosis/ovarian cysts. Preeclampsia History of Any Multi-Drug Resistant Organisms: None Reported Additional Past Surgical History / Comment(s): surgery for ovarian cyst/endometriosis. pain clinic procedures; steroid injections, wisdom teeth Past Anesthesia/Blood Transfusion Reactions: No Reported Reaction Past Psychological History: Anxiety Smoking Status: Former smoker, Vaper Past Alcohol Use History: None Reported Past Drug Use History: None Reported - Past Family History Mother Family Medical History: No Reported History Additional Family Medical History / Comment(s): Mother is healthy Father Family Medical History: Hypertension, Osteoarthritis (OA) General Exam Limitations: no limitations General appearance: alert, in no apparent distress Head exam: Present: atraumatic, normocephalic, normal inspection Eye exam: Present: normal appearance, PERRL, EOMI. Absent: scleral icterus, conjunctival injection, periorbital swelling ENT exam: Present: normal exam, normal oropharynx, mucous membranes moist Neck exam: Present: normal inspection, full ROM. Absent: tenderness, meningismus, lymphadenopathy Respiratory exam: Present: wheezes. Absent: normal lung sounds bilaterally, respiratory distress, rales, rhonchi, stridor Cardiovascular Exam: Present: normal rhythm, tachycardia, normal heart sounds. Absent: systolic murmur, diastolic murmur, rubs, gallop, clicks GI/Abdominal exam: Present: soft, normal bowel sounds. Absent: distended, tenderness, guarding, rebound, rigid Course Vital Signs 08/09/24 08/09/24 09:05 11:07 Temperature 99.1 F Pulse Rate 111 H 95 Respiratory 20 Rate Blood Pressure 138/84 O2 Sat by Pulse 95 Oximetry Medical Decision Making - Medical Decision Making Was pt. sent in by a medical professional or institution (, PA, [employer], urgent care, hospital, or intermediate...) When possible be specific @ -No Did you speak to anyone other than the patient for history (EMS, parent, family, police, friend...)? What history was obtained from this source @ -No Did you review nursing and triage notes (agree or disagree)? Why? @ -I reviewed and agree with nursing and triage notes Were old charts reviewed (outside hosp., previous admission, EMS record, old EKG, old radiological studies, urgent care reports/EKG's, intermediate records)? Report findings @ -No old charts were reviewed Differential Diagnosis (chest pain, altered mental status, abdominal pain women, abdominal pain men, vaginal bleeding, weakness, fever, dyspnea, syncope, headache, dizziness, GI bleed, back pain, seizure, CVA, palpatations, mental health, musculoskeletal)? @ -COVID 19, RSV, influenza, pneumonia, acute bronchitis, URI, this list is not all inclusive EKG interpreted by me (3pts min.). @ -None X-rays interpreted by me (1pt min.). @ -Chest x-ray shows early infiltrates CT interpreted by me (1pt min.). @ -None done U/S interpreted by me (1pt. min.). @ -None done What testing was considered but not performed or refused? (CT, X-rays, U/S, labs)? Why? @ -None What meds were considered but not given or refused? Why? @ -None Did you discuss the management of the patient with other professionals (mohini peñaloza i.e. , PA, [employer], lab, RT, psych nurse, family welfare social work professor, shoe shiner, teacher, detention officer, case management rn)? Give summary @ -No Was smoking cessation discussed for >3mins.? @ -No Was critical care preformed (if so, how long)? @ -No Were there social determinants of health that impacted care today? How? (Homelessness, low income, unemployed, alcoholism, drug addiction, transportation, low edu. Level, literacy, decrease access to med. care, longterm, rehab)? @ -No Was there de-escalation of care discussed even if they declined (Discuss DNR or withdrawal of care, Hospice)? DNR status @ -No What co-morbidities impacted this encounter? (DM, HTN, Smoking, COPD, CAD, Cancer, CVA, ARF, Chemo, Hep., AIDS, mental health diagnosis, sleep apnea, morbid obesity)? @ -None Was patient admitted / discharged? Hospital course, mention meds given and route, prescriptions, significant lab abnormalities, going to OR and other pertinent info. @ -Discharge patient presented for URI symptoms. Patient has acute tracheobronchitis, bronchospasms. Patient is improved after DuoNeb treatment. Patient was discharged with albuterol treatments, azithromycin, steroid pack in which patient already has. Undiagnosed new problem with uncertain prognosis? @ -No Drug Therapy requiring intensive monitoring for toxicity (Heparin, Nitro, Insulin, Cardizem)? @ -No Were any procedures done? @ -No Diagnosis/symptom? @ -Acute bronchitis, bronchospasms Acute, or Chronic, or Acute on Chronic? @ -Acute Uncomplicated (without systemic symptoms) or Complicated (systemic symptoms)? @ -complicated Side effects of treatment? @ -No Exacerbation, Progression, or Severe Exacerbation? @ -No Poses a threat to life or bodily function? How? (Chest pain, [place], [place], pneumonia, PE, COPD, DKA, ARF, appy, cholecystitis, CVA, Diverticulitis, Homicidal, Suicidal, threat to staff... and all critical care pts) @ -No - Lab Data Lab Results 08/09/24 Range/Units 09:43 Influenza Type A (PCR) Not Detected (Not Detectd) Influenza Type B (PCR) Not Detected (Not Detectd) RSV (PCR) Not Detected (Not Detectd) SARS-CoV-2 (PCR) Not Detected (Not Detectd) Disposition Clinical Impression: Tracheobronchitis, Bronchospasm Disposition: HOME SELF-CARE Condition: Stable Instructions (If sedation given, give patient instructions): Upper Respiratory Infection (ED) Additional Instructions: Please return to the Emergency Department if symptoms worsen or any other concerns. Prescriptions: Albuterol Nebulized [Ventolin Nebulized] 2.5 mg INHALATION Q4H PRN #75 ml PRN Reason: difficulty in breathing Azithromycin [Zithromax Z Pack] 0 tab PO DIRECTED #6 tab Is patient prescribed a controlled substance at d/c from ED?: No Referrals: Juan M Donnelly MD [Primary Care Provider] - 1-2 days Time of Disposition: 11:21
[2024-08-09 11:43] VITALS: BP 132/78; PULSE 95; RESP 18; TEMP 97.7
== END 2024-08-09 11:43 | disposition home or self-care (01) ==
LOC: EC 08:35
DX: J40 Bronchitis, not specified as acute or chronic (principal); J98.01 Acute bronchospasm; F17.290 Nicotine dependence, other tobacco product, uncomplicated; Z88.8 Allergy status to other drugs, medicaments and biological substances
CPT/HCPCS: 71046; 87636; 94640; 99283